=== PATIENT | male | born 1945 | race Caucasian/White ===

== ENCOUNTER → 2017-05-01 | Outpatient (CLI) | payer MEDICARE ==
[~2017-05-01] VITALS: Ht 177.8 cm; Wt 92.5 kg
[~2017-05-01] MED LIST: FINA5TAB2 PO; LOVA40TA PO; NS 1,000 ML IV ONE; PROPOFOL 200 MG/20 ML VIAL As Ordered ONE
--- NOTE | 2017-05-01 09:24 | ROOR ---
Patient Name: Sarwat Harrington Procedure Date: 05/01/2017 9:02 AM Date of : 1945 Age: 72 Room: [facility] Gender: Male Note Status: Finalized Procedure: Colonoscopy Indications: High risk colon cancer surveillance: Personal history of colonic polyps Providers: Adan Shields Jr, MD Referring MD: Olena La NP Requesting Provider: Medicines: Propofol per Anesthesia Complications: No immediate complications. Procedure: Pre-Anesthesia Assessment: - Prior to the procedure, a History and Physical was performed, and patient medications and allergies were reviewed. The patient is competent. The risks and benefits of the procedure and the sedation options and risks were discussed with the patient. All questions were answered and informed consent was obtained. Patient identification and proposed procedure were verified by the physician and the nurse in the pre-procedure area and in the procedure room. Mental Status Examination: alert and oriented. Airway Examination: normal oropharyngeal airway and neck mobility. Respiratory Examination: clear to auscultation. CV Examination: normal. ASA Grade Assessment: II - A patient with mild systemic disease. After reviewing the risks and benefits, the patient was deemed in satisfactory condition to undergo the procedure. The anesthesia plan was to use moderate sedation / analgesia (conscious sedation). Immediately prior to administration of medications, the patient was re-assessed for adequacy to receive sedatives. The heart rate, respiratory rate, oxygen saturations, blood pressure, adequacy of pulmonary ventilation, and response to care were monitored throughout the procedure. The physical status of the patient was re-assessed after the procedure. The Colonoscope was introduced through the anus and advanced to the cecum, identified by appendiceal orifice and ileocecal valve. The colonoscopy was performed without difficulty. The patient tolerated the procedure well. The quality of the bowel preparation was adequate and good. Findings: The perianal and digital rectal examinations were normal. Pertinent negatives include normal sphincter tone, no palpable rectal lesions and no anal lesion or abnormality was detected. The rectum, recto-sigmoid colon, descending colon, transverse colon, ascending colon, cecum, appendiceal orifice and ileocecal valve appeared normal. Multiple small and large-mouthed diverticula were found in the sigmoid colon. A small polyp was found in the sigmoid colon. The polyp was removed with a hot snare. Resection and retrieval were complete. Impression: - The rectum, recto-sigmoid colon, descending colon, transverse colon, ascending colon, cecum, appendiceal orifice and ileocecal valve are normal. - Diverticulosis in the sigmoid colon. - One small polyp in the sigmoid colon, removed with a hot snare. Resected and retrieved. Recommendation: - Repeat colonoscopy in 5 years for surveillance. Adan Shields MD Adan Shields Jr, MD 05/01/2017 9:24:08 AM This report has been signed electronically. Number of Addenda: 0 Note Initiated On: 05/01/2017 9:02 AM Estimated Blood Loss: Estimated blood loss: none.
[2017-05-01 09:55] VITALS: BP 129/93
== END | disposition home or self-care (01) ==
LOC: M OPP 08:03
PROVIDERS: ATTEND Surgery
DX: Z12.11 Encounter for screening for malignant neoplasm of colon (principal); K57.30 Diverticulosis of large intestine without perforation or abscess without bleeding; D12.5 Benign neoplasm of sigmoid colon; E78.00 Pure hypercholesterolemia, unspecified; M19.90 Unspecified osteoarthritis, unspecified site; N40.0 Benign prostatic hyperplasia without lower urinary tract symptoms

== ENCOUNTER → 2017-12-22 | Outpatient (REF) | payer MEDICARE ==
[2017-12-22 14:20] LABS: INFLUENZA A AMPLIFICATION POSITIVE (NEGATIVE); INFLUENZA B AMPLIFICATION NEGATIVE (NEGATIVE)
== END ==
LOC: M LAB REF 12:54
DX: R05 Cough (principal)
CPT/HCPCS: 87502

== ENCOUNTER → 2017-12-29 | Outpatient (CLI) | payer MEDICARE | LOC: M WUC 15:09 | DX: R06.02 Shortness of breath (principal) | CPT/HCPCS: 71046 ==

== ENCOUNTER → 2018-10-14 | Outpatient (REF) | payer MEDICARE ==
[2018-10-15 13:47] LABS: INFLUENZA A AMPLIFICATION NEGATIVE (NEGATIVE); INFLUENZA B AMPLIFICATION NEGATIVE (NEGATIVE)
== END ==
LOC: M LAB REF 10-15 12:12
DX: R05 Cough (principal); J06.9 Acute upper respiratory infection, unspecified
CPT/HCPCS: 87502

== ENCOUNTER → 2019-01-18 | Outpatient (REF) | payer MEDICARE ==
[~2019-01-18] MED LIST changes: -NS 1,000 ML IV ONE; -PROPOFOL 200 MG/20 ML VIAL As Ordered ONE
[2019-01-18 13:10] LABS: INFLUENZA A AMPLIFICATION NEGATIVE (NEGATIVE); INFLUENZA B AMPLIFICATION NEGATIVE (NEGATIVE)
== END ==
LOC: M LAB REF 12:18
PROVIDERS: ATTEND Nurse Practitioner Adult Health
DX: J06.9 Acute upper respiratory infection, unspecified (principal); R05 Cough

== ENCOUNTER → 2019-08-27 | Outpatient (CLI) | payer MEDICARE ==
[2019-08-27 12:42] LABS: HEMATOCRIT 47.9 % (42.0-52.0); HEMOGLOBIN 15.8 g/dl (13.5-17.5); MEAN CORPUSCULAR HEMOGLOBIN 31.9 pg (27.0-33.0); MEAN CORPUSCULAR VOLUME 96.8 fl (80.0-96.0); PLATELET COUNT, AUTOMATED 284 10^3/uL (150-450); RED BLOOD COUNT 4.95 10^6/uL (4.30-6.10); WHITE BLOOD COUNT 8.6 10^3/uL (4.0-10.0)
[2019-08-27 13:00] LABS: BLOOD UREA NITROGEN 21 MG/DL (7-18); CREATININE FOR GFR 1.16 MG/DL (0.70-1.30); GLOMERULAR FILTRATION RATE > 60.0 (>42)
== END ==
LOC: M LAB 11:43
PROVIDERS: ATTEND Surgery
DX: Z01.818 Encounter for other preprocedural examination (principal)

== ENCOUNTER → 2019-09-02 | Outpatient (CLI) | payer MEDICARE ==
[~2019-09-02] MED LIST changes: +GASTROGRAFIN SOLUTION 30ML (Q9963) As Ordered ONE; +ISOVUE-370 76% 100ML VIAL (Q9967) As Ordered ONE
--- NOTE | 2019-09-03 08:28 | REP ---
CT abdomen and pelvis with IV and oral contrast: History: Incisional hernia. Umbilical hernia. No comparison study. CT contrast dose: 100 ml of intravenous Isovue 370. CT findings: Preliminary digital health facilities surveyor radiograph shows an unremarkable bowel gas pattern. There is a dextroconvex lumbar scoliosis. The lung bases show bibasilar linear fibrosis versus atelectasis. Right more prominent than left. Right hemidiaphragm is somewhat elevated. The liver shows diffuse fatty infiltration. Spleen is homogeneous in texture normal in size. No adrenal lesion is seen. No abnormalities noted in the pancreas or in the gallbladder. There are bilateral renal cysts. A simple cyst is seen on the left measuring 2.9 cm in greatest diameter. There is a complex cystic lesion projecting laterally from the upper pole of the right kidney measuring 5.3 by 2.9 by 3.2 cm in diameter. This has a heterogeneous internal attenuation pattern and therefore, does not meet criteria of a simple cyst. Further evaluation of this is warranted. It has a mean Hounsfield unit density of 38 HU. No hydronephrosis is seen. Atherosclerotic calcification is seen in the abdominal aorta which is ectatic, but not aneurysmal. 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 A there is diverticulosis affecting the descending and sigmoid segments of the colon without CT evidence of diverticulitis. Small and large bowel loops are otherwise unremarkable in the abdomen and pelvis. The patient is status post ventral hernia repair. No abdominal wall defect is appreciated. There are dystrophic calcifications in the prostate. Urinary bladder and seminal vesicles are unremarkable. Impression: 1. 5.3 cm complex cystic lesion right kidney, rule out cystic malignancy. Consider renal sonography and/or renal MRI scanning. 2. 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 3. Left colonic diverticulosis without CT evidence of diverticulitis. 4. Status post ventral hernia repair no abdominal wall defect seen. Electronically Signed by Volodymyr Junior MD 09/03/2019 08:40 A
== END ==
LOC: M RAD 12:46
PROVIDERS: ATTEND Surgery
DX: K76.0 Fatty (change of) liver, not elsewhere classified (principal); N28.1 Cyst of kidney, acquired; I70.0 Atherosclerosis of aorta; I72.2 Aneurysm of renal artery; K57.30 Diverticulosis of large intestine without perforation or abscess without bleeding; Z98.890 Other specified postprocedural states
CPT/HCPCS: 74177; Q9963; Q9967

== ENCOUNTER → 2019-09-17 | Outpatient (CLI) | payer MEDICARE ==
[~2019-09-17] MED LIST changes: -GASTROGRAFIN SOLUTION 30ML (Q9963) As Ordered ONE; -ISOVUE-370 76% 100ML VIAL (Q9967) As Ordered ONE
--- NOTE | 2019-09-17 08:51 | REP ---
Clinical: Renal neoplasm. Technique: Real time acuna scale ultrasound examination using curved array transducer. Findings: The right kidney measures 11.0 x 5.0 x 5.0 cm and demonstrates cortical thinning without hydronephrosis. 4.3 x 3.2 x 3.0 cm exophytic mass identified along the mid/lower lateral portion of the kidney. The left kidney measures 11.4 x 7.4 x 6.2 cm and demonstrates cortical thinning without hydronephrosis, nephrolithiasis, or mass lesion. Simple benign lower pole cyst measures 2.1 x 2.3 x 2.4 cm. Bladder is collapsed. Impression: Solid right renal mass consistent with renal cell carcinoma unless proven otherwise. Electronically Signed by Foreign Dietrich MD 09/17/2019 08:43 A
== END ==
LOC: M RAD 06:27
PROVIDERS: ATTEND Surgery
DX: D30.01 Benign neoplasm of right kidney (principal)

== ENCOUNTER → 2019-09-24 | Outpatient (REF) | payer MEDICARE ==
[~2019-09-24] MED LIST changes: +CHOL100029 PO; +DOCU100C16 PO; +HYDR10TAB PO; +LABE10TAB PO; +MULTCAP PO; +OXYC1TAB23 PO; +PERCOCET PO; +PROAAER10 INH; +VITA100066 PO; +VITMTA PO
[2019-09-24 14:09] LABS: AMORPHOUS SEDIMENT MODERATE (NEGATIVE); APPEARANCE, URINE TURBID (CLEAR); BACTERIA, URINE AUTO NEGATIVE (NEGATIVE); BILIRUBIN, URINE AUTO NEGATIVE (NEGATIVE); BLOOD, URINE BLOOD NEGATIVE (NEGATIVE); COLOR, URINE AMBER (YELLOW); GLUCOSE, URINE (UA) AUTO NEGATIVE (NEGATIVE); KETONE, URINE AUTO 1+ mg/dL (NEGATIVE); LEUKOCYTE ESTERASE, URINE AUTO TRACE (NEGATIVE); MUCUS, URINE LARGE (NEGATIVE); NITRITE, URINE AUTO NEGATIVE (NEGATIVE); PROTEIN, URINE AUTO 1+ mg/dL (NEGATIVE); RBC, URINE AUTO 0 /HPF (0-3); SPECIFIC GRAVITY URINE AUTO 1.024 (1.002-1.035); SQUAMOUS EPITHELIAL CELL UR AU 0 /HPF (0-6); WBC, URINE AUTO 1 /HPF (0-3)
== END ==
LOC: M SMT 13:04
PROVIDERS: ATTEND Nurse Practitioner Women's Health
DX: N28.1 Cyst of kidney, acquired (principal)

== ENCOUNTER → 2019-09-24 | Outpatient (CLI) | payer MEDICARE ==
[~2019-09-24] MED LIST changes: -CHOL100029 PO; -DOCU100C16 PO; -HYDR10TAB PO; -LABE10TAB PO; -MULTCAP PO; -OXYC1TAB23 PO; -PERCOCET PO; -PROAAER10 INH; +PROHANCE 279.3MG/ML 15ML VIAL (A9576) As Ordered ONE; +PROHANCE 279.3MG/ML 5ML VIAL (A9576) As Ordered ONE; -VITA100066 PO; -VITMTA PO
--- NOTE | 2019-09-27 08:32 | REP ---
MRI abdomen and kidneys without and with IV contrast: History: Complex renal cyst. Comparison sonography September 17, 2019. Comparison CT study September 02, 2019. Technique: Axial and coronal T1 and T2-weighted scans were obtained with sequences including spin echo, fast spin echo, gradient echo, in and [id number], and dynamically acquired sequential post contrast images. Contrast enhancement dose is 18 ml of intravenous ProHance. MRI findings: There are parapelvic and cortical cysts affecting the left kidney. The largest of these measures 3.1 cm. There are two small parapelvic cysts in the right kidney, the largest measuring 1.0 cm. However, in the right kidney, there is also a mid pole lobulated mass which extends laterally into the perirenal fat bulging Gerota's fascia and exerting some mass effect on the adjacent liver. This lesion demonstrates low T2 and isointense T1 signal intensity consistent with a solid neoplastic lesion. It measures 4.8 cm in medial to lateral span by 2.7 cm anterior to posterior by 3.1 cm in greatest cranial to caudal span. Postcontrast images demonstrate heterogeneous enhancement, particularly in the lateral lobulated portion of the lesion. There is no evidence of intralesional fat. No other abnormal enhancement is seen. There is no evidence of regional lymphadenopathy. No abnormality is seen in the renal vein on either side. There are degenerative changes in the lumbar spine along with a dextroconvex lumbar scoliotic curve. Left colonic diverticulosis is seen. No other significant abnormality is appreciated. Impression: Suspicious mass in the right mid kidney most likely representing renal malignancy. No visible regional adenopathy or renal vein abnormality. Electronically Signed by Volodymyr Junior MD 09/27/2019 09:14 A
== END ==
LOC: M RAD 16:57
PROVIDERS: ATTEND Nurse Practitioner Women's Health
DX: N28.1 Cyst of kidney, acquired (principal)
CPT/HCPCS: 74183; 81001; 87086; A9576; G0463

== ENCOUNTER → 2019-10-13 | Outpatient (CLI) | payer MEDICARE ==
[~2019-10-13] MED LIST changes: +CHOL100029 PO; +MULTCAP PO; +PROAAER10 INH; -PROHANCE 279.3MG/ML 15ML VIAL (A9576) As Ordered ONE; -PROHANCE 279.3MG/ML 5ML VIAL (A9576) As Ordered ONE
--- NOTE | 2019-10-13 11:01 | REP ---
Clinical: Preoperative assessment. Renal mass . Comparison: 12/29/2017 . Technique: PA and lateral. Findings: The mediastinum and cardiac silhouette are normal. The lung knight are clear and without acute consolidation, effusion, or pneumothorax. The skeletal structures are intact and normal. Impression: 1. No acute cardiopulmonary process. Electronically Signed by Foreign Dietrich MD 10/13/2019 10:52 A
[2019-10-13 11:35] LABS: HEMATOCRIT 49.9 % (42.0-52.0); HEMOGLOBIN 16.4 g/dl (13.5-17.5); MEAN CORPUSCULAR HGB CONC 32.9 g/dl (32.0-36.5); MEAN CORPUSCULAR VOLUME 97.5 fl (80.0-96.0); PLATELET COUNT, AUTOMATED 211 10^3/uL (150-450); RED BLOOD COUNT 5.12 10^6/uL (4.30-6.10); WHITE BLOOD COUNT 7.6 10^3/uL (4.0-10.0)
[2019-10-13 12:08] LABS: INR 1.03; PROTHROMBIN TIME 13.2 SECONDS (11.8-14.0)
[2019-10-13 12:25] LABS: BLOOD UREA NITROGEN 20 MG/DL (7-18); CALCIUM LEVEL 9.1 MG/DL (8.8-10.2); CARBON DIOXIDE LEVEL 26 MEQ/L (21-32); CHLORIDE LEVEL 108 MEQ/L (98-107); GLOMERULAR FILTRATION RATE > 60.0 (>42); GLUCOSE, FASTING 87 MG/DL (70-100); POTASSIUM SERUM 4.4 MEQ/L (3.5-5.1); SODIUM LEVEL 140 MEQ/L (136-145)
[2019-10-13 12:28] LABS: APPEARANCE, URINE CLEAR (CLEAR); BACTERIA, URINE AUTO NEGATIVE (NEGATIVE); BILIRUBIN, URINE AUTO NEGATIVE (NEGATIVE); BLOOD, URINE BLOOD NEGATIVE (NEGATIVE); COLOR, URINE YELLOW (YELLOW); GLUCOSE, URINE (UA) AUTO NEGATIVE (NEGATIVE); KETONE, URINE AUTO NEGATIVE (NEGATIVE); LEUKOCYTE ESTERASE, URINE AUTO NEGATIVE (NEGATIVE); MUCUS, URINE SMALL (NEGATIVE); NITRITE, URINE AUTO NEGATIVE (NEGATIVE); PROTEIN, URINE AUTO NEGATIVE (NEGATIVE); RBC, URINE AUTO 0 /HPF (0-3); SPECIFIC GRAVITY URINE AUTO 1.014 (1.002-1.035); SQUAMOUS EPITHELIAL CELL UR AU 0 /HPF (0-6); UROBILINOGEN, URINE AUTO 0.2 mg/dL (0.0-2.0); WBC, URINE AUTO 0 /HPF (0-3)
== END ==
LOC: M LAB 09:36
PROVIDERS: ATTEND Nurse Practitioner Women's Health
DX: Z01.818 Encounter for other preprocedural examination (principal); N28.89 Other specified disorders of kidney and ureter

== ENCOUNTER 2019-11-02 06:01 | Inpatient (IN) | payer MEDICARE ==
[2019-11-02] VITALS (7 sets, daily range): BP systolic 130–144; BP diastolic 72–94
[~2019-11-02] VITALS: Ht 180.3 cm; Wt 87.6 kg
[~2019-11-02 06:01] MED LIST changes: +LIDOCAINE 1% MDV 20ML VIAL SQ PRN; +LR 1,000 ML IV SCH; +ceFAZolin SOD 2 GM in IV 1 EA IV ONE
[2019-11-02] MEDS ORDERED: LIDOCAINE 1% SDV INJ 30 ML VIAL As Ordered ONE (07:19)
[2019-11-02] MEDS ORDERED: BUPIVACAINE HCL 0.25% 30 ML VIAL As Ordered ONE (07:19)
[2019-11-02] MEDS ORDERED: ACETAMINOPHEN TAB 650MG DOSE (2X325MG) PO PRN (07:30)
[2019-11-02] MEDS ORDERED: ALBUTEROL 90 MCG/ACT 8GM HFA INHALER INH PRN (07:30)
[2019-11-02] MEDS ORDERED: LIDOCAINE 2% INJ 100 MG/5 ML SDV (FOR ANES.) As Ordered ONE (08:24)
[2019-11-02] MEDS ORDERED: MIDAZOLAM INJ 2 MG/2 ML VIAL (J2250) As Ordered ONE (08:24)
[2019-11-02] MEDS ORDERED: dexameTHASONE 4 MG/ML 1ML VIAL (J1100) As Ordered ONE (08:24)
[2019-11-02] MEDS ORDERED: ROCURONIUM BROMIDE 50 MG/5 ML VIAL As Ordered ONE ×2 (08:24→08:25)
[2019-11-02] MEDS ORDERED: METOCLOPRAMIDE INJ 10MG/2ML VIAL (J2765) As Ordered ONE (08:24)
[2019-11-02] MEDS ORDERED: fentaNYL 250 MCG/5 ML INJECTION (J3010) As Ordered ONE (08:24)
[2019-11-02] MEDS ORDERED: PROPOFOL 200 MG/20 ML VIAL As Ordered ONE (08:24)
[2019-11-02] MEDS ORDERED: ONDANSETRON 4MG/2ML VIAL (J2405) As Ordered ONE (08:25)
[2019-11-02] MEDS ORDERED: SUGAMMADEX SODIUM 500 MG/5 ML VIAL (BRIDION) As Ordered ONE (08:25)
[2019-11-02] MEDS ORDERED: HYDROmorphone HCL 2 MG/ML 1ML VIAL (J1170) As Ordered ONE (08:28)
[2019-11-02] MEDS ORDERED: ePHEDrine SULFATE 25 MG/5 ML(5MG/ML) SYRINGE As Ordered ONE (08:34)
[2019-11-02] MEDS ORDERED: PHENYLephrine HCL 500 MCG/5 ML (100MCG/ML) SYRINGE (J2370) As Ordered ONE (08:34)
[2019-11-02] MEDS: DOCUSATE SODIUM 100 MG CAP PO SCH ×2 (09:00→20:11)
[2019-11-02] MEDS ORDERED: ACETAMINOPHEN 1000MG 100ML IV BTL (OFIRMEV) (J0131 PER 10MG) As Ordered ONE (10:09)
[2019-11-02] MEDS ORDERED: MORPHINE 2 MG/ML 1ML VIAL (J2270) IV PRN (12:00)
[2019-11-02] MEDS ORDERED: fentaNYL 100 MCG/2 ML INJECTION (J3010) IV PRN (12:00)
[2019-11-02] MEDS ORDERED: LR 1,000 ML IV SCH (12:00)
[2019-11-02] MEDS ORDERED: METOCLOPRAMIDE INJ 10MG/2ML VIAL (J2765) IV PRN (12:00)
[2019-11-02] MEDS ORDERED: ONDANSETRON 4MG/2ML VIAL (J2405) IV PRN (12:00)
[2019-11-02] MEDS: PERCOCET 5MG/325MG TAB PO PRN ×4 (12:09→22:46)
[2019-11-02 12:29] LABS: HEMATOCRIT 43.6 % (42.0-52.0); HEMOGLOBIN 14.5 g/dl (13.5-17.5); MEAN CORPUSCULAR HEMOGLOBIN 32.5 pg (27.0-33.0); MEAN CORPUSCULAR HGB CONC 33.3 g/dl (32.0-36.5); MEAN CORPUSCULAR VOLUME 97.8 fl (80.0-96.0); PLATELET COUNT, AUTOMATED 271 10^3/uL (150-450); RED BLOOD COUNT 4.46 10^6/uL (4.30-6.10); WHITE BLOOD COUNT 17.7 10^3/uL (4.0-10.0)
--- NOTE | 2019-11-02 12:29 | ROOPDOC ---
[facility] Report Of Operation Report of Operation DATE OF PROCEDURE: 11/02/19 PREPROCEDURE DIAGNOSES: Right Renal Neoplasm. POSTPROCEDURE DIAGNOSES: Right Renal Neoplasm. PROCEDURE: Right Robotic-assisted Laparoscopic Radical Nephrectomy (adrenal- sparing). SURGEON: Domenica Belle MD FLOORWORKER DISTRIBUTOR: Luann Worrell NP ANESTHESIA: General OPERATIVE INDICATIONS: This is a 74 year old male found to have a solid enhancing 5cm mass on his right kidney, concerning for malignancy. Due to the central extension of the mass it was recommended that he undergo the above procedure for treatment. DESCRIPTION OF PROCEDURE: The patient was brought to the operating room and general anesthesia was induced. Prophylactic antibiotics were infused. A Rouse catheter was placed under sterile conditions. The patient was then repositioned in the left lateral decubitus position. All pressure points were appropriately padded and an axillary roll was placed. He was secured to the table with tape. The patient was then prepped and draped in the usual sterile fashion. The initial incision was for an 8mm port in line with the 11th rib along the lateral rectus margin. A Veress needle was then utilized to achieve the pneumoperitoneum. An 8mm port was then placed in through this incision and through which the camera was inserted. There were no injuries from Veress needle placement or initial trocar placement. The remaining ports were then placed under vision. The right hand robotic port was placed along the costal margin. Another 5 mm port was placed just inferior to the xyphoid for access for a liver retractor. A 12mm robotic port was placed just inferior to the camera port, also on the lateral rectus margin. The left hand robotic port was placed between the anterior-superior iliac spine and the umbilicus. A 15mm assistant housekeeping manager port was placed inferior and medial to the camera port. The robot was then docked. We began by lifting up the liver with a laparoscopic locking Allis clamp. Next the right colon was dissected off of Gerota's fascia. We then Kocherized the duodenum. At this point the inferior vena cava (IVC) was identified. A plane was made onto the lateral aspect of the IVC. Of note, one renal vein was identified. One artery was identified just inferior and posterior to the vein. The artery was carefully dissected and then ligated with Weck clips. It was then transected, leaving 2 Weck clips on the stay side and 1 on the kidney side. Next, a robotic 45mm stapler was utilized to ligate and transect the right renal vein. Once the hilum was taken, a plane onto the upper pole of the kidney was created and the right adrenal gland was mobilized off of the kidney. The kidney was then carefully dissected on all sides until it was only connected by the right ureter. The ureter was then ligated with a Weck clip and transected proximal to the clip. The right kidney was then placed in a large Endocatch bag for future retrieval. We then checked for hemostasis and it appeared excellent. Jaden hemostatic agent was then placed in the nephrectomy bed. Once satisfied with hemostasis, the robot was undocked. We then used a YvesFernando fascial closure device to place a #0 Vicryl free ties through the fascia of the 15 mm camera port site. We then extended one of the left robotic port site incisions and dissected down to the fascia. The fascia was then extended using electrocautery. The muscle was bluntly spread. The specimen was then extracted through this incision. It was handed off the table to send for pathology. We then closed the extraction incision, starting first by reapproximating the muscle with figure of eight #0 Vicryl suture. The fascia was then closed using a running #0 Vicryl suture. At this point, the abdomen was reinsufflated and we looked back in with the camera and there was no bleeding underneath the extraction site. No abdominal contents were caught within the closure either. We then removed all the ports under direct vision and there was no bleeding from any of the port sites. At this point, the previously placed #0 Vicryl free ties were tied down and all the incisions were thoroughly irrigated. The subcutaneous tissue of the extraction incision was then reapproximated using interrupted #3-0 Vicryl suture. We then closed the skin of each site using a running #4-0 subc uticular Monocryl stitch. Local anesthetic was then applied to each incision and Dermabond was then applied and this marked the conclusion of the procedure. The patient was then taken out of the left lateral decubitus position, awakened from anesthesia and transported to the recovery room in stable condition. ESTIMATED BLOOD LOSS: 50 mL INTRAOPERATIVE COMPLICATIONS: None SPECIMENS: Right kidney. PLAN: The patient will be admitted to the hospital postoperatively and he will be discharged home once his renal function is stable and he is tolerating a regular diet. DOMENICA BELLE MD Nov 02, 2019 12:29
[2019-11-02 12:54] LABS: CALCIUM LEVEL 7.9 MG/DL (8.8-10.2); CREATININE FOR GFR 1.65 MG/DL (0.70-1.30); GLOMERULAR FILTRATION RATE 43.6 (>42); POTASSIUM SERUM 4.2 MEQ/L (3.5-5.1)
[2019-11-02] MEDS: NS 1,000 ML IV SCH ×3 (13:51→22:37)
[2019-11-02] MEDS: ceFAZolin SOD 1 GM in D5W MINI-BAG PLUS 50 ML IV SCH (15:34)
[2019-11-03] MEDS: ceFAZolin SOD 1 GM in D5W MINI-BAG PLUS 50 ML IV SCH (00:05)
[2019-11-03 02:00] VITALS: BP 126/84
[2019-11-03 06:00] VITALS: BP 124/80
[2019-11-03] MEDS: NS 1,000 ML IV SCH (06:28)
[2019-11-03 07:02] LABS: HEMOGLOBIN 12.6 g/dl (13.5-17.5); MEAN CORPUSCULAR HEMOGLOBIN 31.7 pg (27.0-33.0); MEAN CORPUSCULAR HGB CONC 32.3 g/dl (32.0-36.5); MEAN CORPUSCULAR VOLUME 98.2 fl (80.0-96.0); PLATELET COUNT, AUTOMATED 217 10^3/uL (150-450); RED BLOOD COUNT 3.97 10^6/uL (4.30-6.10); WHITE BLOOD COUNT 11.8 10^3/uL (4.0-10.0)
[2019-11-03 07:21] LABS: CALCIUM LEVEL 7.3 MG/DL (8.8-10.2); CREATININE FOR GFR 1.77 MG/DL (0.70-1.30); GLOMERULAR FILTRATION RATE 40.2 (>42); POTASSIUM SERUM 3.9 MEQ/L (3.5-5.1)
[2019-11-03] MEDS: DOCUSATE SODIUM 100 MG CAP PO SCH ×2 (08:45→21:49)
[2019-11-03] MEDS: FINASTERIDE 5 MG TAB PO SCH (08:46)
[2019-11-03] MEDS: PERCOCET 5MG/325MG TAB PO PRN ×3 (08:53→18:23)
--- NOTE | 2019-11-03 09:46 | IPNPDOC ---
Subjective Review oF Systems Chief Complaint The patient is a 74-year-old male admitted with a reason for visit of Renal Mass. Events since Last Encounter No acute events o/n. Good pain control. No n/v. Has not ambulated yet. No f/c/ns. Objective Physical Examination General Exam: Alert, Cooperative ABDOMEN EXAM: Soft, Tenderness (mild), Other (incisions clean/dry/intact) Skin Exam: Nl turgor and temperature Neuro Exam: Normal Speech Psych Exam: Mental status NL, Mood NL Other physical findings catheter draining clear urine Vital Signs/I&O Vital Signs Date Time Temp Pulse Resp B/P (MAP) Pulse Ox O2 Delivery O2 Flow Rate FiO2 11/03/19 08:53 16 Room Air 11/03/19 06:00 97.9 64 124/80 (95) 94 11/03/19 02:00 1.0 I&O- Last 24 Hours up to 6 AM 11/03/19 06:00 Intake Total 5675 ml Output Total 1950 ml Balance 3725 ml Laboratory Data Labs 24H Laboratory Tests 2 11/02/19 12:14: Nucleated Red Blood Cells % (auto) 0.0, Anion Gap 9, Glomerular Filtration Rate 43.6, Calcium Level 7.9L 11/03/19 06:36: Nucleated Red Blood Cells % (auto) 0.0, Anion Gap 6L, Glomerular Filtration Rate 40.2L, Calcium Level 7.3L CBC/BMP Laboratory Tests 11/02/19 12:14 11/03/19 06:36 Assessment/Plan Date Seen The patient was seen on 11/03/19. Patient Summary This is a 74 y/o M POD1 s/p R robotic radical nephrectomy. Hb this am was 12.6. Cr is 1.8. UOP has been good. Plan/VTE VTE Prophylaxis Ordered?: Yes VTE Exclusion Mechanical Proph: N/A:VTE Prophy Ordered Plan/Urinary Catheter Urinary Catheter: D/C Rouse Plan - d/c catheter - d/c IVF - percocet prn pain - ambulate - SCDs when in bed - strict I/Os - advance diet as tolerated - likely discharge home tomorrow DOMENICA BELLE MD Nov 03, 2019 09:46
[2019-11-03 10:00] VITALS: BP 133/87
[2019-11-03 14:00] VITALS: BP 146/91
[2019-11-03 18:00] VITALS: BP 168/98
[2019-11-03] MEDS: MORPHINE 2 MG/ML 1ML VIAL (J2270) IV PRN (21:53)
[2019-11-03 22:00] VITALS: BP 180/100
[2019-11-03] MEDS ORDERED: **hydrALAZINE** 10 MG TAB PO ONE (23:15)
[2019-11-04] VITALS (12 sets, daily range): BP systolic 109–192; BP diastolic 63–98; O2SAT 91–94
[2019-11-04] MEDS: PERCOCET 5MG/325MG TAB PO PRN ×5 (00:02→20:29)
[2019-11-04] MEDS: MORPHINE 2 MG/ML 1ML VIAL (J2270) IV PRN ×3 (04:01→21:56)
[2019-11-04] MEDS ORDERED: hydrALAZINE INJ 20 MG/ML VIAL IV PRN (04:30)
[2019-11-04] MEDS: ONDANSETRON 4MG/2ML VIAL (J2405) IV PRN (05:34)
[2019-11-04 06:04] LABS: CALCIUM LEVEL 8.1 MG/DL (8.8-10.2); CREATININE FOR GFR 1.55 MG/DL (0.70-1.30); GLOMERULAR FILTRATION RATE 46.9 (>42); HEMATOCRIT 45.1 % (42.0-52.0); MEAN CORPUSCULAR HEMOGLOBIN 31.8 pg (27.0-33.0); MEAN CORPUSCULAR HGB CONC 33.3 g/dl (32.0-36.5); MEAN CORPUSCULAR VOLUME 95.6 fl (80.0-96.0); PLATELET COUNT, AUTOMATED 215 10^3/uL (150-450); POTASSIUM SERUM 3.8 MEQ/L (3.5-5.1); RED BLOOD COUNT 4.72 10^6/uL (4.30-6.10); WHITE BLOOD COUNT 13.8 10^3/uL (4.0-10.0)
--- NOTE | 2019-11-04 07:15 | ECGEPIP ---
[facility] Test Date: 2019-11-04 Pat Name: BOZENA WORKMAN Department: Room: [place] [address] Gender: Male Bacteriologist Soil: TATY FAUST : 1945 Requested By: DOMENICA Weinstein Order Number: [id number] Reading MD: Ajit Cordero Measurements Intervals [place] Rate: 89 P: 3 AR: 200 QRS: 9 QRSD: 94 T: 59 QT: 393 QTc: 479 Interpretive Statements SINUS RHYTHM WITH OCCASIONAL VENTRICULAR PREMATURE COMPLEXES WITH FREQUENT SUPRAVENTRICULAR PREMATURE COMPLEXES Prolonged QTc interval Nonspecific ST-T wave abnormalities Comparison tracing not on file Electronically Signed on 11-04-2019 7:14:48 EST by Ajit Cordero
[2019-11-04 07:19] LABS: MAGNESIUM LEVEL 2.6 MG/DL (1.8-2.4)
--- NOTE | 2019-11-04 08:07 | IPNPDOC ---
Subjective Review oF Systems Chief Complaint The patient is a 74-year-old male admitted with a reason for visit of Renal Mass. Events since Last Encounter The patient had very high BPs o/n w/ BP in 200s/100s. He was transferred to the PCU and the hospitalist service was consulted. He denied any problems at the time other than moderate amount of abd pain. He is tolerating a diet. Denies n/v. No chest pain or SOB. No f/c/ns. Objective Physical Examination General Exam: Alert, Cooperative ABDOMEN EXAM: Soft, Tenderness (mild), Other (incisions clean/dry/intact) Skin Exam: Nl turgor and temperature Neuro Exam: Normal Speech Psych Exam: Mental status NL, Mood NL Vital Signs/I&O Vital Signs Date Time Temp Pulse Resp B/P (MAP) Pulse Ox O2 Delivery O2 Flow Rate FiO2 11/04/19 06:04 18 11/04/19 05:38 164/92 (116) 11/04/19 04:11 Nasal Cannula 1.0 11/04/19 04:00 98.7 89 92 I&O- Last 24 Hours up to 6 AM 11/04/19 06:00 Intake Total 3035 ml Output Total 5375 ml Balance -2340 ml Laboratory Data Labs 24H Laboratory Tests 2 11/04/19 05:18: Nucleated Red Blood Cells % (auto) 0.0, Anion Gap 8, Glomerular Filtration Rate 46.9, Calcium Level 8.1L, Magnesium Level 2.6H CBC/BMP Laboratory Tests 11/04/19 05:18 Assessment/Plan Date Seen The patient was seen on 11/04/19. Patient Summary This is a 74 y/o M POD2 s/p right robotic radical nephrectomy. His UOP is very good. Hb is stable. Cr is trending down, 1.55 today. BP has improved, due either to hydralazine or better pain control. Plan/VTE VTE Prophylaxis Ordered?: Yes VTE Exclusion Mechanical Proph: N/A:VTE Prophy Ordered Plan - appreciate hospitalist service consult for HTN - cont home meds - ambulate - SCDs in bed - incentive spirometry - strict I/Os - regular diet - discharge likely in 1-2 days pending better BP control DOMENICA BELLE MD Nov 04, 2019 08:07
[2019-11-04] MEDS: DOCUSATE SODIUM 100 MG CAP PO SCH ×2 (09:26→20:29)
[2019-11-04] MEDS: FINASTERIDE 5 MG TAB PO SCH (09:27)
--- NOTE | 2019-11-04 12:28 | CR ---
DATE OF CONSULTATION: 11/04/2019 CONSULTATION REPORT FOR: Dr. David Colon PRIMARY CARE PROVIDER: Dr. Olena Treviño Medical evaluation of Sarwat Harrington who underwent a nephrectomy yesterday. His blood pressures have been elevated postoperatively. He has a past history of hypertension in the past that was perioperative after a knee procedure. His past medical history is essentially benign except for some hyperlipidemia and benign prostatic hypertrophy (BPH). OUTPATIENT MEDICATIONS: - lovastatin 40 mg daily - finasteride 5 mg daily - multivitamin ALLERGIES: Unknown. PAST SURGICAL HISTORY: Shoulder surgery, right hand surgery times three, knee surgery repeatedly, umbilical hernia repair, colonoscopy. SOCIAL HISTORY: Nonsmoker. No alcohol. He is . REVIEW OF SYSTEMS: No chest pain, shortness of breath, palpitations, dyspnea on exertion. PHYSICAL EXAMINATION: Blood pressure 126/63, pulse of 82, respiratory rate of 18, 93% oxygen saturation on one liter. GENERAL APPEARANCE: He is alert, conversant, in no distress. HEENT: Unremarkable. No carotid bruits. LUNGS: Clear. HEART: Regular rate and rhythm without murmur. ABDOMEN: Soft. EXTREMITIES: No clubbing, cyanosis, or edema. Normal strength in the arms and legs. LABORATORY DATA: White count 13.8, hemoglobin 15, platelets 215. Sodium 138, potassium 3.8, BUN 15, creatinine 1.5. Blood pressure is currently at 126/63 and was as high as 180/100 last evening. IMPRESSION: 1. Postoperative hypertension, probably related to nephrectomy and shifts in renin-angiotensin, etcetera. We will start labetalol. Goal blood pressure 140-180 systolic. Heart rate looks like it will tolerate a beta ashley. 2. Hyperlipidemia. Restart statin. We do not have lovastatin on formulary. He could wait until he goes home to restart this. 3. Benign prostatic hypertrophy (BPH). Restart finasteride 5 mg daily. Hospitalist group is available for medical care in this patient during this hospitalization if needed.
[2019-11-04] MEDS: LABETALOL 100 MG TAB PO SCH ×2 (13:46→20:29)
[2019-11-04] MEDS: SIMVASTATIN 20 MG TAB PO SCH (13:46)
[2019-11-05] VITALS (23 sets, daily range): BP systolic 118–172; BP diastolic 74–100; O2SAT 83–93
[2019-11-05] MEDS: PERCOCET 5MG/325MG TAB PO PRN ×5 (04:35→21:27)
[2019-11-05 05:26] LABS: HEMATOCRIT 39.7 % (42.0-52.0); HEMOGLOBIN 13.2 g/dl (13.5-17.5); MEAN CORPUSCULAR HEMOGLOBIN 32.8 pg (27.0-33.0); MEAN CORPUSCULAR HGB CONC 33.2 g/dl (32.0-36.5); MEAN CORPUSCULAR VOLUME 98.5 fl (80.0-96.0); PLATELET COUNT, AUTOMATED 188 10^3/uL (150-450); RED BLOOD COUNT 4.03 10^6/uL (4.30-6.10); WHITE BLOOD COUNT 11.3 10^3/uL (4.0-10.0)
[2019-11-05 05:52] LABS: CREATININE FOR GFR 1.93 MG/DL (0.70-1.30); GLOMERULAR FILTRATION RATE 36.4 (>42); POTASSIUM SERUM 4.3 MEQ/L (3.5-5.1)
[2019-11-05] MEDS: DOCUSATE SODIUM 100 MG CAP PO SCH ×2 (08:45→21:23)
[2019-11-05] MEDS: SIMVASTATIN 20 MG TAB PO SCH (08:45)
[2019-11-05] MEDS: FINASTERIDE 5 MG TAB PO SCH (08:46)
[2019-11-05] MEDS: ONDANSETRON 4MG/2ML VIAL (J2405) IV PRN (10:42)
--- NOTE | 2019-11-05 10:57 | IPN ---
DATE: 11/05/2019 Sarwat's blood pressure is better, still intermittently elevated. No chest pain. He does have some abdominal pain. No shortness of breath. He does have some weakness. PHYSICAL EXAMINATION: Blood pressure 145/74, pulse of 57. General appearance: Alert and conversant in no distress. Lungs clear. Heart regular rhythm. Abdomen soft, mildly tender. No peripheral edema. Labs: White count 11.3, hemoglobin 13.2, platelets 188. Sodium 137, potassium 4.3, creatinine is up to 1.93. IMPRESSION: 1. Hypertension. Blood pressure is under better control. Continue current regimen. 2. Chronic kidney disease with mild acute kidney injury. I think we should watch him for another day. I think his creatinine is equilibrating after having the nephrectomy, however he could have has some renal artery vasospasm when he had his blood pressure spike as well and we need to keep an eye on this to make sure he is not developing any acute tubular necrosis. 3. Benign prostatic hypertrophy (BPH). Continue his finasteride. I will see him while rounding for the hospitalists tomorrow.
[2019-11-05] MEDS: LABETALOL 100 MG TAB PO SCH ×3 (11:19→21:23)
[2019-11-05] MEDS ORDERED: PILL CUTTER 1 EACH XX PRN (11:45)
--- NOTE | 2019-11-05 12:22 | IPNPDOC ---
Subjective Review oF Systems Chief Complaint The patient is a 74-year-old male admitted with a reason for visit of Renal Mass. Events since Last Encounter No acute events o/n. Patient still noting moderate pain w/ movement. He also noted feeling a little weak when trying to ambulate and therefore did not ambulate much yesterday. No n/v. Tolerating diet. Passing flatus. No f/c/ns. Objective Physical Examination General Exam: Alert, Cooperative ABDOMEN EXAM: Soft, Tenderness (mild), Other (incisions clean/dry/intact) Skin Exam: Nl turgor and temperature Neuro Exam: Normal Speech Psych Exam: Mental status NL, Mood NL Vital Signs/I&O Vital Signs Date Time Temp Pulse Resp B/P (MAP) Pulse Ox O2 Delivery O2 Flow Rate FiO2 11/05/19 11:19 55 130/80 11/05/19 09:15 96.9 18 93 Nasal Cannula 2.0 I&O- Last 24 Hours up to 6 AM 11/05/19 06:00 Intake Total 1200 ml Output Total 500 ml Balance 700 ml Laboratory Data Labs 24H Laboratory Tests 2 11/05/19 04:54: Nucleated Red Blood Cells % (auto) 0.0, Anion Gap 10, Glomerular Filtration Rate 36.4L, Calcium Level 8.0L CBC/BMP Laboratory Tests 11/05/19 04:54 Assessment/Plan Date Seen The patient was seen on 11/05/19. Patient Summary This is a 74 y/o M POD3 s/p right robotic radical nephrectomy. His UOP is very good, but Cr went up to 1.9 today form 1.6 yesterday. His BP is under better control on labetalol. He is noting weakness, causing difficulty ambulating. Plan/VTE VTE Prophylaxis Ordered?: Yes VTE Exclusion Mechanical Proph: N/A:VTE Prophy Ordered Plan - appreciate hospitalist team following for BP control - cont home meds - percocet prn pain - PT eval - ambulate - SCDs when in bed - strict I/Os - anticipate discharge home tomorrow DOMENICA BELLE MD Nov 05, 2019 12:22
[2019-11-05] MEDS ORDERED: PERCOCET PO (17:05)
[2019-11-05] MEDS ORDERED: DOCU100C16 PO (17:05)
[2019-11-06] VITALS (24 sets, daily range): BP systolic 120–144; BP diastolic 78–100; O2SAT 87–95
[2019-11-06] MEDS: ONDANSETRON 4MG/2ML VIAL (J2405) IV PRN (00:58)
[2019-11-06 05:31] LABS: HEMATOCRIT 39.7 % (42.0-52.0); HEMOGLOBIN 12.9 g/dl (13.5-17.5); MEAN CORPUSCULAR HEMOGLOBIN 32.1 pg (27.0-33.0); MEAN CORPUSCULAR HGB CONC 32.5 g/dl (32.0-36.5); MEAN CORPUSCULAR VOLUME 98.8 fl (80.0-96.0); PLATELET COUNT, AUTOMATED 208 10^3/uL (150-450); RED BLOOD COUNT 4.02 10^6/uL (4.30-6.10); WHITE BLOOD COUNT 9.4 10^3/uL (4.0-10.0)
[2019-11-06 05:48] LABS: CALCIUM LEVEL 8.3 MG/DL (8.8-10.2); CREATININE FOR GFR 1.8 MG/DL (0.70-1.30); GLOMERULAR FILTRATION RATE 39.5 (>42); POTASSIUM SERUM 4.1 MEQ/L (3.5-5.1)
[2019-11-06] MEDS: LABETALOL 100 MG TAB PO SCH ×3 (06:09→21:01)
[2019-11-06] MEDS: PERCOCET 5MG/325MG TAB PO PRN ×4 (08:20→22:37)
[2019-11-06] MEDS: DOCUSATE SODIUM 100 MG CAP PO SCH ×2 (09:20→21:00)
[2019-11-06] MEDS: SIMVASTATIN 20 MG TAB PO SCH (09:20)
[2019-11-06] MEDS: FINASTERIDE 5 MG TAB PO SCH (09:21)
--- NOTE | 2019-11-06 10:17 | IPNPDOC ---
Subjective Review oF Systems Chief Complaint The patient is a 74-year-old male admitted with a reason for visit of Renal Mass. Events since Last Encounter pt feels well but still has some mild pain. His biggest complaint is weakness and constipation. General: Denies: Chills Constitutional: Denies: Fever, Chills Cardiovascular: Denies Chest Pain Gastrointestinal: Reports: Constipation; Denies: Nausea, Vomiting, Abdominal Pain, Diarrhea Genitourinary: Denies: Dysuria, Frequency Psych: Reports: Mood Normal; Denies: Anxiety Objective Physical Examination General Exam: Alert, Cooperative, No Acute Distress; No: Mild Distress ABDOMEN EXAM: BS Hypoactive, Soft, Other (incisions clean/dry/intact); No: Tenderness (mild) Skin Exam: Nl turgor and temperature; No: Rash Neuro Exam: Normal Speech Psych Exam: Mental status NL, Mood NL; No: Anxiety Vital Signs/I&O Vital Signs Date Time Temp Pulse Resp B/P (MAP) Pulse Ox O2 Delivery O2 Flow Rate FiO2 11/06/19 08:20 97.9 60 16 120/86 94 Room Air 2.0 I&O- Last 24 Hours up to 6 AM 11/06/19 06:00 Intake Total 1740 ml Output Total 1925 ml Balance -185 ml Laboratory Data Labs 24H Laboratory Tests 2 11/06/19 04:30: Nucleated Red Blood Cells % (auto) 0.0, Anion Gap 6L, Glomerular Filtration Rate 39.5L, Calcium Level 8.3L CBC/BMP Admission diagnosis: . Discharge diagnosis: Condition at Discharge: Discharge Instructions: [Home/other] Activity: Diet: Medications: Follow-up: Other: Laboratory Tests 11/06/19 04:30 Assessment/Plan Date Seen The patient was seen on 11/06/19. Plan/VTE VTE Prophylaxis Ordered?: Yes VTE Exclusion Mechanical Proph: N/A:VTE Prophy Ordered Plan Diet: Continue Current Activity: Encourage Ambulation Anticipated Discharge: Home (likely home tomorrow) VERONA MCNEILL MD Nov 06, 2019 10:17
--- NOTE | 2019-11-06 10:47 | IPN ---
DATE: 11/06/2019 Magys blood pressure is coming down. It is responding to the medication. He is a little fatigued, he gets a bit orthostatic and dizzy and when he stands. I do not think that he is ready for discharge yet. PHYSICAL EXAMINATION: Blood pressure 120/86, pulse 60. GENERAL APPEARANCE: Alert, conversant, no distress. LUNGS: Clear. HEART: Regular rhythm. ABDOMEN: Soft, nontender. EXTREMITIES: No peripheral edema. LABORATORIES: Creatinine is down to 1.8. CBC is stable. IMPRESSION: 1. Hypertension. Blood pressure is under better control. Medications have been adjusted. I think that he needs another day here to get accommodated to his medical regimen. 2. Chronic kidney disease, acute kidney injury secondary to nephrectomy. Per urology.
[2019-11-06] MEDS ORDERED: SLF 3 ML SYR IV PRN (13:45)
[2019-11-06] MEDS: SLF 3 ML SYR IV SCH ×2 (17:42→21:01)
[2019-11-07] VITALS (14 sets, daily range): BP systolic 130–178; BP diastolic 76–120; O2SAT 88–95
[2019-11-07 05:33] LABS: HEMATOCRIT 41.4 % (42.0-52.0); HEMOGLOBIN 13.4 g/dl (13.5-17.5); MEAN CORPUSCULAR HEMOGLOBIN 31.5 pg (27.0-33.0); MEAN CORPUSCULAR HGB CONC 32.4 g/dl (32.0-36.5); MEAN CORPUSCULAR VOLUME 97.2 fl (80.0-96.0); PLATELET COUNT, AUTOMATED 220 10^3/uL (150-450); RED BLOOD COUNT 4.26 10^6/uL (4.30-6.10); WHITE BLOOD COUNT 8.7 10^3/uL (4.0-10.0)
[2019-11-07] MEDS: LABETALOL 100 MG TAB PO SCH ×3 (05:52→21:45)
[2019-11-07 05:53] LABS: CALCIUM LEVEL 8.4 MG/DL (8.8-10.2); CREATININE FOR GFR 1.61 MG/DL (0.70-1.30); GLOMERULAR FILTRATION RATE 44.9 (>42); POTASSIUM SERUM 4.1 MEQ/L (3.5-5.1)
[2019-11-07] MEDS: SLF 3 ML SYR IV SCH ×3 (05:53→21:46)
[2019-11-07] MEDS: PERCOCET 5MG/325MG TAB PO PRN ×4 (05:53→23:46)
[2019-11-07] MEDS: SIMVASTATIN 20 MG TAB PO SCH (08:37)
[2019-11-07] MEDS: DOCUSATE SODIUM 100 MG CAP PO SCH ×2 (08:37→21:45)
[2019-11-07] MEDS: FINASTERIDE 5 MG TAB PO SCH (08:38)
--- NOTE | 2019-11-07 09:39 | ECGEPIP ---
[facility] Test Date: 2019-11-07 Pat Name: BOZENA WORKMAN Department: Room: [place] [address] Gender: Male Glass Glazier: DOROTHY : 1945 Requested By: Kilo Montalvo Order Number: [id number] Reading MD: Ajit Cordero Measurements Intervals [place] Rate: 58 P: -4 AR: 211 QRS: 19 QRSD: 82 T: 43 QT: 425 QTc: 419 Interpretive Statements SINUS BRADYCARDIA WITH SINUS ARRHYTHMIA WITH FIRST DEGREE AV BLOCK Electronically Signed on 11-07-2019 9:39:18 EST by Ajit Cordero
--- NOTE | 2019-11-07 10:40 | IPNPDOC ---
Subjective Review oF Systems Chief Complaint The patient is a 74-year-old male admitted with a reason for visit of Renal Mass. Events since Last Encounter Pt stills feels weak and lethargic. Has not had a solid BM but is passing fla tus. Has some BP issues that are being evaluated by internal medicine. General: Denies: Chills, Night Sweats Constitutional: Denies: Fever Gastrointestinal: Reports: Constipation; Denies: Nausea, Vomiting, Abdominal Pain, Diarrhea Genitourinary: Denies: Frequency, Hematuria, Retention Psych: Reports: Mood Normal; Denies: Anxiety, Memory Issues Objective Physical Examination General Exam: Alert, Cooperative, No Acute Distress ABDOMEN EXAM: Soft, Other (incisions clean/dry/intact); No: Tenderness (mild) Male Exam: Normal Genital Exam (bladder not distended) Skin Exam: Nl turgor and temperature; No: Rash Neuro Exam: Normal Speech Psych Exam: Mental status NL, Mood NL; No: Anxiety Vital Signs/I&O Vital Signs Date Time Temp Pulse Resp B/P (MAP) Pulse Ox O2 Delivery O2 Flow Rate FiO2 11/07/19 08:00 98.0 55 20 178/120 (139) 97 Room Air 11/07/19 07:00 2.0 I&O- Last 24 Hours up to 6 AM 11/07/19 05:59 Intake Total 840 ml Output Total 1250 ml Balance -410 ml Laboratory Data Labs 24H Laboratory Tests 2 11/07/19 04:50: Nucleated Red Blood Cells % (auto) 0.0, Anion Gap 8, Glomerular Filtration Rate 44.9, Calcium Level 8.4L CBC/BMP Laboratory Tests 11/07/19 04:50 Assessment/Plan Date Seen The patient was seen on 11/07/19. Plan/VTE VTE Prophylaxis Ordered?: Yes VTE Exclusion Mechanical Proph: N/A:VTE Prophy Ordered Plan Diet: Continue Current Activity: Encourage Ambulation Anticipated Discharge: Home (try for home tomorrow) VERONA MCNEILL MD Nov 07, 2019 10:40
[2019-11-07] MEDS: **hydrALAZINE** 10 MG TAB PO SCH ×2 (13:16→21:46)
[2019-11-07] MEDS: MIRALAX *UNIT DOSE* 17GM PACKET PO PRN (13:22)
[2019-11-07] MEDS: SENOKOT S TAB PO PRN (13:22)
--- NOTE | 2019-11-07 14:09 | IPN ---
DATE: 11/07/2019 Sarwat's blood pressure is still elevated at 178/120 this morning. He is getting a little agitated over his hospitalization. No chest pain or shortness of breath. He is status post right nephrectomy. He has not had a hypertension problem for many years and now his blood pressure is significantly elevated since the nephrectomy raising a question about whether this might have unmasked renal artery stenosis in the remaining kidney. PHYSICAL EXAMINATION: Vital signs as listed. She is alert, conversant and in no distress. Lungs clear. Heart regular rhythm. Abdomen soft. Nontender. No peripheral edema. LABS: CBC unremarkable. Electrolytes unremarkable. Creatinine is down to 1.6, which is the best it has been since the nephrectomy. IMPRESSION: 1. Hypertension. Blood pressure can be erratic after nephrectomy, but it is unusual to be up to this extent requiring escalation of blood pressure medications on a daily basis. I am going to order a renal Doppler ultrasound to make sure there is no occult left renal artery stenosis at play here unmasked by right nephrectomy. I have adjusted his antihypertensives. He should remain on telemetry in the PCU. He is not ready for discharge yet.
[2019-11-07] MEDS: ONDANSETRON 4MG/2ML VIAL (J2405) IV PRN (15:00)
[2019-11-08] MEDS: ONDANSETRON 4MG/2ML VIAL (J2405) IV PRN (00:20)
[2019-11-08 04:00] VITALS: BP 156/76
[2019-11-08 05:09] LABS: HEMATOCRIT 41.5 % (42.0-52.0); HEMOGLOBIN 13.6 g/dl (13.5-17.5); MEAN CORPUSCULAR HEMOGLOBIN 31.4 pg (27.0-33.0); MEAN CORPUSCULAR HGB CONC 32.8 g/dl (32.0-36.5); MEAN CORPUSCULAR VOLUME 95.8 fl (80.0-96.0); PLATELET COUNT, AUTOMATED 253 10^3/uL (150-450); RED BLOOD COUNT 4.33 10^6/uL (4.30-6.10)
[2019-11-08 05:21] LABS: CALCIUM LEVEL 8.7 MG/DL (8.8-10.2); CREATININE FOR GFR 1.7 MG/DL (0.70-1.30); GLOMERULAR FILTRATION RATE 42.2 (>42); POTASSIUM SERUM 4.1 MEQ/L (3.5-5.1)
[2019-11-08] MEDS: LABETALOL 100 MG TAB PO SCH ×3 (05:37→21:57)
[2019-11-08] MEDS: SLF 3 ML SYR IV SCH ×3 (05:38→21:58)
[2019-11-08] MEDS: **hydrALAZINE** 10 MG TAB PO SCH ×3 (05:38→21:58)
[2019-11-08 08:00] VITALS: BP 165/100
[2019-11-08] MEDS ORDERED: BISACODYL 10 MG SUPP PR ONE (09:00)
--- NOTE | 2019-11-08 09:39 | REP ---
Clinical: Hypertension and chronic medical renal disease. History of right nephrectomy. Technique: Brewer scale and color Doppler evaluation of the kidneys and renal vasculature using curved array transducer. Findings: Left kidney is normal in contour, size, echogenicity, and reniform shape without hydronephrosis, nephrolithiasis, cystic or renal mass lesion. Kidney measures 11.8 cm in length. Color Doppler evaluation is severely limited due to extensive overlying bowel gas. Left intrarenal arteries demonstrate parvus tardus wave patterns with otherwise normal resistive indices and acceleration times. Left kidney: Peak arterial velocity: Not obtainable due to overlying bowel gas Renal aortic ratio: Not obtainable Resistive indices: 0.59 - 0.64 . Acceleration times: 0.036 - 0.053 . Impression: 1. Normal appearance to the left kidney. 2. Limited Doppler evaluation may warrant MRA evaluation for further investigation. Electronically Signed by Foreign Diterich MD 11/08/2019 09:30 A
[2019-11-08] MEDS: DOCUSATE SODIUM 100 MG CAP PO SCH ×2 (09:40→21:57)
[2019-11-08] MEDS: SIMVASTATIN 20 MG TAB PO SCH (09:40)
[2019-11-08] MEDS: FINASTERIDE 5 MG TAB PO SCH (09:41)
[2019-11-08] MEDS: SIMETHICONE 80 MG CHEW TAB PO PRN ×2 (10:46→21:56)
[2019-11-08] MEDS: MIRALAX *UNIT DOSE* 17GM PACKET PO PRN (11:58)
[2019-11-08] MEDS: SENOKOT S TAB PO PRN (11:58)
[2019-11-08 12:00] VITALS: BP 136/90
--- NOTE | 2019-11-08 12:45 | IPN ---
DATE: 11/08/2019 Sarwat's blood pressure is still intermittently elevated. It was 165/100 this morning. No chest pain, shortness of breath, or dyspnea on exertion. He is able to walk in the hallway. We did Doppler renal ultrasound which was fairly limited due to bowel gas. Nothing remarkable seen but not able to rule out renal artery stenosis on that side. PHYSICAL EXAMINATION: Blood pressure 165/100, pulse 65, 95% oxygen saturation. He looks well. He is resting comfortably. He is walking with his using a walker. Lungs: Clear. Heart: Regular rhythm. Abdomen: Soft, nontender. No peripheral edema. LABS: Electrolytes unremarkable. Creatinine is 1.7, which is stable. CBC unremarkable. IMPRESSION: 1. Accelerated hypertension: Renal ultrasound did not show renal artery stenosis. Outpatient MRA could be considered. Does not need this done in the hospital. Blood pressure medications were adjusted again today. Patient should be stable for discharge tomorrow. 2. Hyperlipidemia: Continue on simvastatin 20 mg daily. 3. Benign prostatic hypertrophy: Continue his finasteride and tamsulosin. Discussed the case with Dr. Colon. Patient was on the urology service but has been kept in the hospital for medical care presumably dealing with hypertension issues. He transferred the care onto the hospitalist service. Dr. Colon will arrange his postop urology visit. He has already sent in prescriptions for Colace and some oxycodone, acetaminophen for pain control so when it comes time for discharge, his analgesic needs have already been met.
--- NOTE | 2019-11-08 13:50 | IPNPDOC ---
Subjective Review oF Systems Chief Complaint The patient is a 74-year-old male admitted with a reason for visit of Renal Mass. Events since Last Encounter No acute events o/n. Patient still noting moderate abdominal discomfort. No n/v. Tolerating diet. No f/c/ns. Objective Physical Examination General Exam: Alert, Cooperative, No Acute Distress ABDOMEN EXAM: Soft, Tenderness (mild), Other (incisions clean/dry/intact) Skin Exam: Nl turgor and temperature; No: Rash Neuro Exam: Normal Speech Psych Exam: Mental status NL, Mood NL; No: Anxiety Vital Signs/I&O Vital Signs Date Time Temp Pulse Resp B/P (MAP) Pulse Ox O2 Delivery O2 Flow Rate FiO2 11/08/19 12:00 97.7 70 24 136/90 (105) 92 Room Air 11/07/19 07:00 2.0 I&O- Last 24 Hours up to 6 AM 11/08/19 06:00 Intake Total 1020 ml Output Total 1875 ml Balance -855 ml Laboratory Data Labs 24H Laboratory Tests 2 11/08/19 04:34: Nucleated Red Blood Cells % (auto) 0.0, Anion Gap 8, Glomerular Filtration Rate 42.2, Calcium Level 8.7L CBC/BMP Laboratory Tests 11/08/19 04:34 Assessment/Plan Date Seen The patient was seen on 11/08/19. Patient Summary This is a 74 y/o M POD6 s/p right robotic radical nephrectomy. He was kept in house over the weekend due to difficulty controlling his BP. He is now on hydralazine and labetalol. The patient has still been requiring a moderate amount of percocet for pain. It appears that his pain is not due to his incisions, but likely from bloating from an ileus. He is passing small amounts of flatus and noted that he had a small bm yesterday. His abdominal discomfort improves when he passes flatus. Plan/VTE VTE Prophylaxis Ordered?: Yes VTE Exclusion Mechanical Proph: N/A:VTE Prophy Ordered Plan - appreciate hospitalist service management and w/u of new onset HTN - discussed w/ patient the need to decrease narcotics to help w/ his ileus - dulcolax suppository ordered - regular diet - will transfer patient's care to hospitalist service for management of HTN - patient's f/u has been arranged to be seen in office in 1 wk Diet: Continue Current Activity: Encourage Ambulation Anticipated Discharge: Home (try for home tomorrow) DOMENICA BELLE MD Nov 08, 2019 13:50
[2019-11-08 16:00] VITALS: BP 140/95
[2019-11-08 20:00] VITALS: BP 136/62
[2019-11-08] MEDS: PERCOCET 5MG/325MG TAB PO PRN (21:57)
[2019-11-08 23:59] VITALS: BP 125/77
[2019-11-09 04:00] VITALS: BP 138/87
[2019-11-09 05:12] LABS: HEMATOCRIT 41.5 % (42.0-52.0); HEMOGLOBIN 13.6 g/dl (13.5-17.5); MEAN CORPUSCULAR HEMOGLOBIN 31.7 pg (27.0-33.0); MEAN CORPUSCULAR HGB CONC 32.8 g/dl (32.0-36.5); MEAN CORPUSCULAR VOLUME 96.7 fl (80.0-96.0); PLATELET COUNT, AUTOMATED 264 10^3/uL (150-450); RED BLOOD COUNT 4.29 10^6/uL (4.30-6.10); WHITE BLOOD COUNT 9.6 10^3/uL (4.0-10.0)
[2019-11-09 05:23] LABS: CALCIUM LEVEL 8.2 MG/DL (8.8-10.2); CREATININE FOR GFR 1.51 MG/DL (0.70-1.30); GLOMERULAR FILTRATION RATE 48.3 (>42); POTASSIUM SERUM 3.9 MEQ/L (3.5-5.1)
[2019-11-09] MEDS: PERCOCET 5MG/325MG TAB PO PRN (05:47)
[2019-11-09] MEDS: LABETALOL 100 MG TAB PO SCH (05:47)
[2019-11-09 05:48] VITALS: BP 130/88
[2019-11-09] MEDS: SLF 3 ML SYR IV SCH (05:48)
[2019-11-09] MEDS: **hydrALAZINE** 10 MG TAB PO SCH (05:48)
[2019-11-09 08:00] VITALS: BP 125/82
[2019-11-09] MEDS: SIMVASTATIN 20 MG TAB PO SCH (08:16)
[2019-11-09] MEDS: DOCUSATE SODIUM 100 MG CAP PO SCH (08:16)
[2019-11-09] MEDS: FINASTERIDE 5 MG TAB PO SCH (08:17)
[2019-11-09] MEDS ORDERED: LABE10TAB PO (10:18)
[2019-11-09] MEDS ORDERED: HYDR10TAB PO (10:18)
--- NOTE | 2019-11-10 17:36 | DS.PDOC ---
Discharge Summary General Date of Admission Nov 02, 2019 at 06:01 Date of Discharge November 09, 2019 Specialist/Consultants Involve: DOMENICA BELLE MD Discharge Summary PROCEDURES PERFORMED DURING STAY: [R. nephrectomy]. ADMITTING DIAGNOSES: R. renal mass DISCHARGE DIAGNOSES: R. renal mass-s/p nephrectomy; essential hypertension; BPH, dyslipidemia COMPLICATIONS/CHIEF COMPLAINT: Renal Mass. HISTORY OF PRESENT ILLNESS/HOSPITAL COURSE: 74 year old male found to have R. renal mass. Underwent nephrectomy by Urology service. Developed post-op hypertension, felt to be due to post op renal changes. Responded well to treatment with labetalol and hydralazine. Outpatient renal MRA recommended. There were no other post-op issues. DISCHARGE MEDICATIONS: Please see below. ALLERGIES: Please see below. PHYSICAL EXAMINATION ON DISCHARGE: VITAL SIGNS: Please see below. HEENT: [neck supple and without adenopathy or thyromegaly] CARDIOVASCULAR EXAMINATION: [RRR, no murmur] RESPIRATORY EXAMINATION: [clear to auscultation] ABDOMINAL EXAMINATION: [soft, mildly tender, incision site intact] EXTREMITIES: [no edema LABORATORY DATA: Please see below. IMAGING: PROGNOSIS: ACTIVITY: [As tolerated]. DIET: [as tolerated] DISCHARGE PLAN: [Patient was otherwise stable for discharge to home. Will follow up with Urology as scheduled.] DISPOSITION: Home, Self-Care. DISCHARGE INSTRUCTIONS: 1. . ITEMS TO FOLLOWUP ON ON OUTPATIENT: 1. . DISCHARGE CONDITION: [Stable]. TIME SPENT ON DISCHARGE: [40] minutes. Vital Signs/I&Os Vital Signs Date Time Temp Pulse Resp B/P (MAP) Pulse Ox O2 Delivery O2 Flow Rate FiO2 11/09/19 08:00 98.0 54 18 125/82 (96) 95 Room Air 11/07/19 07:00 2.0 I&O- Last 24 Hours up to 6 AM 11/10/19 06:00 Intake Total 600 ml Balance 600 ml Discharge Medications Scheduled Cholecalciferol (Vitamin D3) (Vitamin D3) 1,000 Unit Tablet, 1,000 UNIT PO QHS, (Reported) Docusate Sodium (Docusate Sodium) 100 Mg Capsule, 100 MG PO BID, (Reported) Finasteride (Finasteride) 5 Mg Tab, 5 MG PO QHS, (Reported) Hydralazine HCl (Hydralazine HCl) 10 Mg Tablet, 10 MG PO Q8H, (Reported) Labetalol HCl (Labetalol HCl) 100 Mg Tablet, 50 MG PO Q8H, (Reported) Lovastatin (Lovastatin) 40 Mg Tab, 20 MG PO QHS, (Reported) Multivitamins (Thera M Plus Tablet) 1 Each Tablet, 1 TAB PO QHS, (Reported) Scheduled PRN Albuterol Sulfate (Proair Hfa) 8.5 Gm Hfa.aer.ad, 2 PUFF INH QID PRN for SHORTNESS OF BREATH, (Reported) Oxycodone HCl/Acetaminophen (Oxycodone-Acetaminophen 5-325) 1 Each Tablet, 1-2 TAB PO Q6H PRN for MODERATE/SEVERE PAIN (PS 5-10), (Reported) Allergies Coded Allergies: No Known Allergies (Unverified , 11/02/19) KENNETH MALDONADO MD Nov 10, 2019 17:36
== END 2019-11-09 12:37 | disposition home or self-care (01) | DRG 657 ==
LOC: M OR 06:01 → M MSPAV 13:41 → M PCU 11-04 04:57
PROVIDERS: ADMIT Urology; ATTEND Internal Medicine
PROC: 8E0W4CZ Robotic Assisted Procedure of Trunk Region, Percutaneous Endoscopic Approach (ICD-10-PCS; 2019-11-02)
PROC: 0TT04ZZ Resection of Right Kidney, Percutaneous Endoscopic Approach (ICD-10-PCS; principal; 2019-11-02 07:30)
DX: C64.1 Malignant neoplasm of right kidney, except renal pelvis (principal); K56.7 Ileus, unspecified; N17.9 Acute kidney failure, unspecified; I97.3 Postprocedural hypertension; E78.5 Hyperlipidemia, unspecified; I12.9 Hypertensive chronic kidney disease with stage 1 through stage 4 chronic kidney disease, or unspecified chronic kidney disease; N40.0 Benign prostatic hyperplasia without lower urinary tract symptoms; N18.9 Chronic kidney disease, unspecified; Z79.899 Other long term (current) drug therapy

== ENCOUNTER → 2019-11-15 | Outpatient (CLI) | payer MEDICARE ==
[~2019-11-15] MED LIST changes: +DOCU100C16 PO; +HYDR10TAB PO; +LABE10TAB PO; -LIDOCAINE 1% MDV 20ML VIAL SQ PRN; -LR 1,000 ML IV SCH; +PERCOCET PO; -ceFAZolin SOD 2 GM in IV 1 EA IV ONE
[2019-11-15 18:49] LABS: CALCIUM LEVEL 8.6 MG/DL (8.8-10.2); CREATININE FOR GFR 1.66 MG/DL (0.70-1.30); GLOMERULAR FILTRATION RATE 43.3 (>42); POTASSIUM SERUM 5.1 MEQ/L (3.5-5.1)
[2019-11-15 18:50] LABS: MEAN CORPUSCULAR HEMOGLOBIN 31.9 pg (27.0-33.0); MEAN CORPUSCULAR HGB CONC 32.6 g/dl (32.0-36.5); MEAN CORPUSCULAR VOLUME 97.9 fl (80.0-96.0); PLATELET COUNT, AUTOMATED 440 10^3/uL (150-450); RED BLOOD COUNT 4.39 10^6/uL (4.30-6.10); WHITE BLOOD COUNT 11.6 10^3/uL (4.0-10.0)
== END ==
LOC: M PLALAB 13:48
PROVIDERS: ATTEND Urology
DX: C64.9 Malignant neoplasm of unspecified kidney, except renal pelvis (principal); Z90.5 Acquired absence of kidney

== ENCOUNTER 2019-11-17 19:44 | Inpatient (IN) | payer MEDICARE ==
[~2019-11-17] VITALS: Ht 180.3 cm; Wt 85.9 kg
[2019-11-17] MEDS ORDERED: LABETALOL HCL 100 MG/20 ML VIAL IV STA ×2 (20:34→21:32)
[2019-11-17 20:45] LABS: BASO # 0.1 10^3/uL (0.0-0.2); BASO % 0.3 % (0.0-1.0); EOS # 0.4 10^3/uL (0.0-0.5); EOS % 1.9 % (0.0-3.0); HEMATOCRIT 44.5 % (42.0-52.0); HEMOGLOBIN 14.3 g/dl (13.5-17.5); LYMPH # 0.7 10^3/uL (1.5-5.0); LYMPH % 3.6 % (24.0-44.0); MEAN CORPUSCULAR HEMOGLOBIN 31.1 pg (27.0-33.0); MEAN CORPUSCULAR HGB CONC 32.1 g/dl (32.0-36.5); MEAN CORPUSCULAR VOLUME 96.7 fl (80.0-96.0); MONO # 0.8 10^3/uL (0.0-0.8); MONO % 4.2 % (0.0-5.0); NEUTROPHILS # 17.7 10^3/uL (1.5-8.5); NEUTROPHILS % 89.4 % (36.0-66.0); PLATELET COUNT, AUTOMATED 433 10^3/uL (150-450); WHITE BLOOD COUNT 19.8 10^3/uL (4.0-10.0)
[2019-11-17] MEDS ORDERED: ONDANSETRON 4MG/2ML VIAL (J2405) IV ONE (20:45)
[2019-11-17 20:49] LABS: INR 1.14; PROTHROMBIN TIME 14.3 SECONDS (11.8-14.0)
[2019-11-17 20:55] LABS: ALBUMIN 3.5 GM/DL (3.2-5.2); BILIRUBIN,DIRECT 0.2 MG/DL (0.0-0.2); BILIRUBIN,TOTAL 0.7 MG/DL (0.2-1.0); CALCIUM LEVEL 8.7 MG/DL (8.8-10.2); CREATININE FOR GFR 1.65 MG/DL (0.70-1.30); GLOMERULAR FILTRATION RATE 43.6 (>42); POTASSIUM SERUM 4.6 MEQ/L (3.5-5.1); TOTAL PROTEIN 6.9 GM/DL (6.4-8.2)
[2019-11-17] MEDS ORDERED: PERCOCET 5MG/325MG TAB PO ONE (21:30)
--- NOTE | 2019-11-17 21:56 | REPVR ---
PROCEDURE INFORMATION: Exam: CT Abdomen And Pelvis Without Contrast Exam date and time: 11/17/2019 8:57 PM Age: 74 years old Clinical indication: Abdominal pain; Generalized; Prior surgery; Surgery date: <1 month; Surgery type: Post nephrectomy right side; Additional info: Abd pain post surg TECHNIQUE: Imaging protocol: Computed tomography of the abdomen and pelvis without contrast. Radiation optimization: All CT scans at this facility use at least one of these dose optimization techniques: automated exposure control; mA and/or kV adjustment per patient size (includes targeted exams where dose is matched to clinical indication); or iterative reconstruction. COMPARISON: CT ABD PELVIS WITH CONTRAST 2019-09-02 15:06 FINDINGS: Pleural space: Small right-sided pleural effusion with right lower lobe atelectasis and consolidation. Right lower lung pleural calcifications. Diaphragm: Elevation of the right hemidiaphragm. Liver: Normal. No mass. Gallbladder and bile ducts: Normal. No calcified stones. No ductal dilation. Pancreas: Normal. No ductal dilation. Spleen: Normal. No splenomegaly. Adrenals: Normal. No mass. Kidneys and ureters: Right nephrectomy with a small amount of fluid in the nephrectomy bed, as expected. 2.5 cm left renal cyst. Stomach and bowel: Mild colonic diverticulosis without evidence for acute diverticulitis. Appendix: No evidence of appendicitis. Intraperitoneal space: Unremarkable. No free air. No significant fluid collection. Vasculature: Unremarkable. No abdominal aortic aneurysm. Lymph nodes: Unremarkable. No enlarged lymph nodes. Bladder: Unremarkable as visualized. Reproductive: Unremarkable as visualized. Bones/joints: Moderate lumbar spondylosis. Lumbar scoliosis. Soft tissues: Abdominal wall kaleb. IMPRESSION: 1. Small right-sided pleural effusion with right lower lobe atelectasis and consolidation. 2. Right nephrectomy with a small amount of fluid in the nephrectomy bed, as expected. Electronically signed by: Ajit Lui On 11/17/2019 21:56:17 PM
[2019-11-17] MEDS ORDERED: cefTRIAXone SOD 1 GM in D5W MINI-BAG PLUS 50 ML IV ONE (22:15)
[2019-11-17] MEDS ORDERED: HYDR10TAB PO (23:03)
[2019-11-17] MEDS ORDERED: VITA100066 PO (23:03)
[2019-11-17] MEDS ORDERED: DOCU100C16 PO (23:03)
[2019-11-17] MEDS ORDERED: LABE10TAB PO (23:03)
[2019-11-17] MEDS ORDERED: VITMTA PO (23:03)
[2019-11-17] MEDS ORDERED: OXYC1TAB23 PO (23:03)
[2019-11-17 23:16] LABS: INFLUENZA A AMPLIFICATION NEGATIVE (NEGATIVE); INFLUENZA B AMPLIFICATION NEGATIVE (NEGATIVE)
[2019-11-17] MEDS ORDERED: ALBUTEROL 90 MCG/ACT 8GM HFA INHALER INH PRN (23:45)
[2019-11-17] MEDS ORDERED: ONDANSETRON 4 MG TAB (S0181) PO PRN (23:45)
[2019-11-17] MEDS ORDERED: MOM 30ML SUSPENSION UDC PO PRN (23:45)
[2019-11-17] MEDS ORDERED: MAALOX 30 ML SUSP *UDC PO PRN (23:45)
--- NOTE | 2019-11-17 23:57 | IPNPDOC ---
Text Note Date of Service The patient was admitted on 11/17/19 & seen on 11/18/19. NOTE I examined at 1201AM, reviewed 's note and agree with the findings as documented. VS,Fishbone, I+O VS, Fishbone, I+O Laboratory Tests 11/17/19 20:00 Vital Signs Date Time Temp Pulse Resp B/P (MAP) Pulse Ox O2 Delivery O2 Flow Rate FiO2 11/17/19 23:45 100.2 76 104/56 (72) 91 11/17/19 22:45 Room Air 11/17/19 21:34 22 WILL WHEELER MD Nov 17, 2019 23:57
--- NOTE | 2019-11-18 00:05 | HPEPDOC ---
[facility] Medical History & Physical Date of Admission Nov 17, 2019 Date of Service: Nov 18, 2019 Primary Care Physician: Olena La Attending Physician: WILL WHEELER MD History and Physical CHIEF COMPLAINT: flank pain HISTORY OF PRESENT ILLNESS: Sarwat Harrington is a 74 year old man who presented to the ED with increasing pain in his torso and abdomen, worst over his right flank, and elevated blood pressure with systolic in the 190s at home. He reports a recent right radical nephrectomy performed on 11/02/[address] Colon for a renal mass which was found to be renal cell carcinoma. The patient states he was discharged on 11/09/2019 from the hospital and had been taken Percocet one to 2 pills every 6 hours for the pain. He states he has been trying to cut back on the Percocet and since then his pain has become out of control. He also notes that he has had elevated blood pressures since his surgery and was started on 2 medications. During his admission post operatively to help keep his blood pressure under control. He states prior to his surgery. He does note that he has a history of hypertension in the past but has been off medication for at least 6 years until after his surgery last month. On review of systems, the patient notes that he has had chills recently and has had a hard time keeping warm. He also notes that he has a cough in the mornings, which brings up clear mucus or sputum. He also notes a mild headache and intermittent dizziness which he thinks is related to when his blood pressure is elevated. REVIEW OF SYSTEMS: CONSTITUTIONAL: Endorses chills today. Denies fevers, night sweats, fatigue, unexpected change in weight. HEENT: Denies change in vision, change in hearing. CARDIOVASCULAR: Denies chest pain, palpitations, shortness of breath, lightheadedness. RESPIRATORY: Endorses pain with deep inspiration and morning cough with small amount of clear sputum/mucus production. Denies wheezing. GASTROINTESTINAL: Endorses nausea. Denies vomiting, abdominal pain, diarrhea, constipation, blood in stool. GENITOURINARY: Denies dysuria, urinary frequency, urinary urgency. SKIN: Denies rash, lesions. MUSCULOSKELETAL: Endorse flank pain as described in HPI. Denies new joint pains. NEUROLOGICAL: Endorses mild headache and intermittent dizziness. Denies weakness. PSYCHIATRIC: Denies change in mood. PAST MEDICAL HISTORY: 1. Renal cell carcinoma, s/p R radial nephrectomy 2. Chronic Hypertension since recent operation and in the remote past 3. Hyperlipidemia 4. BPH PAST SURGICAL HISTORY: 1. Right robotic radical nephrectomy on 11/02/19 2. L knee replacement 2010 3. L shoulder surgery 1964 4. Umbilical hernia repair 5. Multiple dupuytren's contracture releases SOCIAL HISTORY: Denies history of tobacco or illicit/IV drug use Occasional alcohol use, last time at least 1 month ago Lives at home with FAMILY HISTORY: Father: pulmonary disease, smoker Mother: pulmonary disease, smoker Hx of lung cancer in aunt and uncle ALLERGIES: Please see below. HOME MEDICATIONS: Please see below. PHYSICAL EXAMINATION: VITAL SIGNS: See below GENERAL: Alert, comfortable, in no acute distress HEENT: Normocephalic, atraumatic, PERRLA, EOMI, moist mucous membranes NECK: Supple, trachea midline, no lymphadenopathy, no JVD CARDIOVASCULAR: Regular rate and rhythm, normal S1 and S2. No murmurs, rubs, or gallops RESPIRATORY: Course rhonchi in the left lateral lung base, remaining lung field clear to auscultation. No wheezing or rales. ABDOMEN: Mildly tender throughout. Soft, nondistended, bowel sounds present, no masses or hepatosplenomegaly appreciated EXTREMITIES: No cyanosis or edema. Pulses 2+/4 in bilateral upper and lower extremities SKIN: [place], warm, dry NEUROLOGIC: Alert and oriented 3 to person, place and time. Cranial nerves 2-12 grossly intact. No focal deficits appreciated PSYCHIATRIC: Mood and affect appropriate LABORATORY DATA: See below. IMAGING: CT abdomen/pelvis: 1. Small right-sided pleural effusion with right lower lobe atelectasis and consolidation. 2. Right nephrectomy with a small amount of fluid in the nephrectomy bed, as expected. MICROBIOLOGY: Please see below. ASSESSMENT/PLAN: 74-year-old male with acute right radical nephrectomy presents to emergency department with elevated blood pressure and intractable pain, admitted to the hospital for pneumonia found on CT imaging, blood pressure con trol and monitoring, and pain control 1. Sepsis 2/2 Community acquired pneumonia. CURB-65 score of 2 with BUN above 19 and age over 65 = moderate risk = Consider inpatient treatment or outpatient with close followup. -SIRS Criterial include RR >22 and WBC # >12.5 -The lactic acid is wnl. Antibiotic coverage with ceftriaxone and azithromycin day #1 of 7 + IVF Flu A and B negative. Sputum culture, MRSA, strep Pneumo and legionella ordered Incentive spirometry for area of atelectasis on CT, Acapella to help clear mucus 2. Chronic Hypertension Likely elevated due to the patient's increased pain as he has been cutting back on his pain medications at home s/p 5 mg IV labetalol in the ED with improvement of his blood pressure. Continue home blood pressure regimen with PO labetalol and hydralazine and adjust as necessary Expect improvement of his hypertension with better pain control 3. Right flank pain. Pain management with Percocet while inpatient. Expected hypertension to improve with better pain control. Continue Colace twice a day 4. Mild Renal Insufficiency - his GFR has decreased while his Cr and BUN have increased since Oct 13 - negative UA - continue to monitor daily BMP 5. Renal cell carcinoma. No evidence of complication seen on CT imaging. Follow up outpatient with urology scheduled DVT prophylaxis: SC heparin, Danilo stockings Disposition: likely home after more than 2 midnight's stay (inpatient med/surg) Vital Signs Vital Signs Date Time Temp Pulse Resp B/P (MAP) Pulse Ox O2 Delivery O2 Flow Rate FiO2 11/17/19 22:45 76 101/52 (68) 91 Room Air 11/17/19 21:34 22 11/17/19 19:44 98.6 Laboratory Data Labs 24H Laboratory Tests 2 11/17/19 20:00: Immature Granulocyte % (Auto) 0.6, Neutrophils (%) (Auto) 89.4H, Lymphocytes (%) (Auto) 3.6L, Monocytes (%) (Auto) 4.2, Eosinophils (%) (Auto) 1.9, Basophils (%) (Auto) 0.3, Neutrophils # (Auto) 17.7H, Lymphocytes # (Auto) 0.7L, Monocytes # (Auto) 0.8, Eosinophils # (Auto) 0.4, Basophils # (Auto) 0.1, Nucleated Red Blood Cells % (auto) 0.0, Prothrombin Time 14.3H, Prothromb Time International Ratio 1.14, Anion Gap 11, Glomerular Filtration Rate 43.6, Calcium Level 8.7L, Total Bilirubin 0.7, Direct Bilirubin 0.2, Aspartate Amino Transf (AST/SGOT) 16, Alanine Aminotransferase (ALT/SGPT) 41, Alkaline Phosphatase 73, Total Protein 6.9, Albumin 3.5, Albumin/Globulin Ratio 1.03, Lipase 190 11/17/19 20:43: Urine Color YELLOW, Urine Appearance CLEAR, Urine pH 6.0, Urine Specific [place] 1.019, Urine Protein NEGATIVE, Urine Glucose (UA) NEGATIVE, Urine Ketones TRACEH, Urine Blood NEGATIVE, Urine Nitrite NEGATIVE, Urine Bilirubin NEGATIVE, Urine Urobilinogen 0.2, Urine Leukocyte Esterase NEGATIVE, Urine WBC (Auto) 0, Urine RBC (Auto) 2, Urine Hyaline Casts (Auto) 0, Urine Bacteria (Auto) NEGATIVE, Urine Squamous Epithelial Cells 0, Urine Mucus (Auto) SMALL, Urine Sperm (Auto) 11/17/19 22:28: Influenza Type A (RT-PCR) NEGATIVE, Influenza Type B (RT-PCR) NEGATIVE CBC/BMP Laboratory Tests 11/17/19 20:00 Home Medications Scheduled Cholecalciferol (Vitamin D3) (Vitamin D3) 1,000 Unit Tablet, 1,000 UNIT PO QHS Docusate Sodium (Docusate Sodium) 100 Mg Capsule, 100 MG PO BID Finasteride (Finasteride) 5 Mg Tab, 5 MG PO QHS Hydralazine HCl (Hydralazine HCl) 10 Mg Tablet, 10 MG PO Q8H Labetalol HCl (Labetalol HCl) 100 Mg Tablet, 50 MG PO Q8H Lovastatin (Lovastatin) 40 Mg Tab, 20 MG PO QHS Multivitamins (Thera M Plus Tablet) 1 Each Tablet, 1 TAB PO QHS Scheduled PRN Albuterol Sulfate (Proair Hfa) 8.5 Gm Hfa.aer.ad, 2 PUFF INH QID PRN for SHORTNESS OF BREATH Oxycodone HCl/Acetaminophen (Oxycodone-Acetaminophen 5-325) 1 Each Tablet, 1-2 TAB PO Q6H PRN for MODERATE/SEVERE PAIN (PS 5-10) Allergies Coded Allergies: No Known Allergies (Unverified , 11/02/19) A-FIB/CHADSVASC A-FIB History Current/History of A-Fib/PAF?: No Current PO Anticoag Therapy: No GME ATTESTATION GME ATTESTATION My faculty preceptor for this patient encounter was physically present during the encounter and was fully available. All aspects of the patient interview, examination, medical decision making process, and medical care plan development were reviewed and approved by the faculty preceptor. The faculty preceptor is aware and concurs with the plan as stated in the body of this note and will attest to such by his/her cosignature. ATTENDING NOTE Pls see addendum dated 11/17/19 DELANEY ROCKWELL D.O. Nov 17, 2019 23:35 WILL WHEELER MD Nov 18, 2019 03:18
[2019-11-18] MEDS ORDERED: SODIUM CHLORIDE 0.9% 1000ML IV SCH (00:30)
[2019-11-18] MEDS ORDERED: BENZONATATE 100 MG CAP PO SCH (00:30)
[2019-11-18 00:34] VITALS: BP 82/59
[2019-11-18 00:35] VITALS: BP 110/70
[2019-11-18] MEDS: BENZONATATE 100 MG CAP PO SCH ×3 (01:02→15:02)
[2019-11-18] MEDS: MULTIVITAMINS/MINERALS THERAP 1 TAB PO SCH ×2 (01:02→21:09)
[2019-11-18] MEDS: ACETAMINOPHEN 650MG ER TAB (TYLENOL ARTHRITIS) PO PRN (01:03)
[2019-11-18] MEDS: DOCUSATE SODIUM 100 MG CAP PO SCH ×3 (01:03→21:08)
[2019-11-18] MEDS: VITAMIN D 1,000 INTERNATIONAL UNITS TABLET PO SCH ×2 (01:03→21:08)
[2019-11-18] MEDS: SIMVASTATIN 40 MG TAB PO SCH ×2 (01:03→21:08)
[2019-11-18] MEDS: FINASTERIDE 5 MG TAB PO SCH ×2 (01:03→21:08)
[2019-11-18] MEDS: HEPARIN SOD (PORCINE) 5000 UNITS/ML VIAL SC SCH ×3 (05:37→21:09)
[2019-11-18 06:15] VITALS: BP 114/72
[2019-11-18] MEDS: PERCOCET 5MG/325MG TAB PO PRN (06:32)
[2019-11-18] MEDS: NS 1,000 ML IV SCH ×2 (06:32→16:34)
[2019-11-18 07:18] LABS: HEMATOCRIT 37.4 % (42.0-52.0); MEAN CORPUSCULAR HEMOGLOBIN 32.2 pg (27.0-33.0); MEAN CORPUSCULAR HGB CONC 32.9 g/dl (32.0-36.5); MEAN CORPUSCULAR VOLUME 97.9 fl (80.0-96.0); PLATELET COUNT, AUTOMATED 374 10^3/uL (150-450); RED BLOOD COUNT 3.82 10^6/uL (4.30-6.10); WHITE BLOOD COUNT 23.8 10^3/uL (4.0-10.0)
[2019-11-18 07:28] LABS: HEMOGLOBIN 12.3 g/dl (13.5-17.5)
[2019-11-18 07:47] LABS: CALCIUM LEVEL 8.1 MG/DL (8.8-10.2); CREATININE FOR GFR 1.73 MG/DL (0.70-1.30); GLOMERULAR FILTRATION RATE 41.3 (>42); POTASSIUM SERUM 4.1 MEQ/L (3.5-5.1)
[2019-11-18] MEDS: LABETALOL 100 MG TAB PO SCH ×2 (08:00→15:01)
[2019-11-18] MEDS ORDERED: AZITHROMYCIN INJ 500 MG, VIAL MATE ADAPTER 1 EACH in D5W 250 ML IV SCH (08:00)
[2019-11-18] MEDS ORDERED: **hydrALAZINE** 10 MG TAB PO SCH (08:00)
[2019-11-18] MEDS ORDERED: cefTRIAXone SOD 1 GM in D5W MINI-BAG PLUS 50 ML IV SCH (09:00)
[2019-11-18] MEDS ORDERED: SODIUM CHLORIDE 0.9% 1000ML IV ONE (09:15)
[2019-11-18] MEDS: PIPERACILLIN/TAZOBACTAM SOD 3.375 GM in D5W MINI-BAG PLUS 50 ML IV SCH ×3 (10:28→21:09)
--- NOTE | 2019-11-18 11:12 | IPNPDOC ---
Text Note Date of Service The patient was seen on 11/18/19. NOTE SUBJECTIVE: Continues to have severe right flank pain and difficulty in deep b reaths and coughing due to the pain. Low grade fever overnight. Has not had much urine output but denies any trouble getting it out. No nausea or vomiting or diarrhea. PHYSICAL EXAMINATION: VITAL SIGNS: See below GENERAL: Alert, comfortable, in no acute distress HEENT: Normocephalic, atraumatic, PERRLA, EOMI, moist mucous membranes NECK: Supple, trachea midline, no lymphadenopathy, no JVD CARDIOVASCULAR: Regular rate and rhythm, normal S1 and S2. No murmurs, rubs, or gallops RESPIRATORY: crackles at lizz right base ABDOMEN: Mildly tender throughout. Soft, nondistended, bowel sounds present, no masses or hepatosplenomegaly appreciated EXTREMITIES: No cyanosis or edema. Pulses 2+/4 in bilateral upper and lower extremities SKIN: [place], warm, dry NEUROLOGIC: Alert and oriented 3 to person, place and time. Cranial nerves 2-12 grossly intact. No focal deficits appreciated PSYCHIATRIC: Mood and affect appropriate LABORATORY DATA: Reviewed See below. IMAGING: CT abdomen/pelvis: 1. Small right-sided pleural effusion with right lower lobe atelectasis and consolidation. 2. Right nephrectomy with a small amount of fluid in the nephrectomy bed, as expected. MICROBIOLOGY: Please see below. ASSESSMENT/PLAN: 74-year-old male with PMH of Hypertension, right renal cell carcinoma s/p right radical nephrectomy on 11/02/19, Hyperlipidemia, BPH Osteoarthritis s/p joint replacements, dupuytren contracture releases presented to the ED with increasing pain in his torso and abdomen, worst over his right flank, and elevated blood pressure with systolic in the 190s at home. He reports a recent right radical nephrectomy was performed on 11/02/[address] Colon for a renal mass which was found to be renal cell carcinoma. The patient states he was discharged on 11/09/2019 from the hospital and had been taken Percocet one to 2 pills every 6 hours for the pain. He states he has been trying to cut back on the Percocet and since then his pain has become out of control. He also notes that he has had elevated blood pressures since his surgery and was started on 2 medications. He was also have cough , fever and chills at home. He was found to have right lower lobe pneumonia . He was admitted to the hospital for pneumonia found on CT imaging, blood pressure control and monitoring, and pain control HCAP right lower lobe recent hospitalization within past 1 month will change antibiotic to Zosyn. blood culture in progress, sputum progress. incentive spirometry adequate pain control needed. Sepsis due to pneumonia Zosyn Hypertensive urgency due to severe pain. received iv labetelol in ED Now resolved after pain well controlled. will continue with po labetelol. stop hydralazine bp soft this morning. Right robotic radical nephrectomy on 11/02/19 Right flank pain. Pain management with Percocet while inpatient. Continue Colace twice a day Acute kidney injury possibly due to loss of renal mass, sepsis, rule out urinary retention and bladder oulet obstruction. had nephrectomy His new baseline creatinine is probably going to be 1.5 to 1.7. Renal cell carcinoma. No evidence of complication seen on CT imaging. Follow up outpatient with urology scheduled BPH watch for urinary retention continue finasteride. bladder scan prn. Hyperlipidemia continue statin DVT prophylaxis: SC heparin, Danilo stockings VS,Fishbone, I+O VS, Fishbone, I+O Laboratory Tests 11/17/19 20:00 11/18/19 06:40 Vital Signs Date Time Temp Pulse Resp B/P (MAP) Pulse Ox O2 Delivery O2 Flow Rate FiO2 11/18/19 06:32 18 11/18/19 06:15 98.7 70 114/72 (86) 94 Room Air I&O- Last 24 Hours up to 6 AM 11/18/19 06:00 Intake Total 390 ml Output Total 100 ml Balance 290 ml ALEXANDRA WAGNER MD Nov 18, 2019 09:39
[2019-11-18 14:00] VITALS: BP 128/84
[2019-11-18 21:12] VITALS: BP 135/84
[2019-11-19] MEDS: BENZONATATE 100 MG CAP PO SCH ×4 (00:25→23:24)
[2019-11-19] MEDS: LABETALOL 100 MG TAB PO SCH ×4 (00:25→23:24)
[2019-11-19] MEDS: NS 1,000 ML IV SCH (03:51)
[2019-11-19] MEDS: PERCOCET 5MG/325MG TAB PO PRN ×2 (03:52→15:04)
[2019-11-19] MEDS: PIPERACILLIN/TAZOBACTAM SOD 3.375 GM in D5W MINI-BAG PLUS 50 ML IV SCH ×4 (03:52→21:09)
[2019-11-19 05:21] VITALS: BP 128/80
[2019-11-19] MEDS: HEPARIN SOD (PORCINE) 5000 UNITS/ML VIAL SC SCH ×3 (05:54→21:10)
[2019-11-19 07:22] LABS: BASO # 0.1 10^3/uL (0.0-0.2); BASO % 0.4 % (0.0-1.0); EOS # 0.7 10^3/uL (0.0-0.5); EOS % 6.3 % (0.0-3.0); HEMATOCRIT 35.9 % (42.0-52.0); HEMOGLOBIN 11.6 g/dl (13.5-17.5); LYMPH # 1.5 10^3/uL (1.5-5.0); LYMPH % 12.8 % (24.0-44.0); MEAN CORPUSCULAR HEMOGLOBIN 31.8 pg (27.0-33.0); MEAN CORPUSCULAR HGB CONC 32.3 g/dl (32.0-36.5); MEAN CORPUSCULAR VOLUME 98.4 fl (80.0-96.0); MONO % 8.9 % (0.0-5.0); NEUTROPHILS # 8.2 10^3/uL (1.5-8.5); NEUTROPHILS % 71.2 % (36.0-66.0); PLATELET COUNT, AUTOMATED 338 10^3/uL (150-450); RED BLOOD COUNT 3.65 10^6/uL (4.30-6.10); WHITE BLOOD COUNT 11.6 10^3/uL (4.0-10.0)
[2019-11-19 07:44] LABS: CALCIUM LEVEL 7.9 MG/DL (8.8-10.2); CREATININE FOR GFR 1.65 MG/DL (0.70-1.30); GLOMERULAR FILTRATION RATE 43.6 (>42); POTASSIUM SERUM 4.3 MEQ/L (3.5-5.1)
[2019-11-19] MEDS: DOCUSATE SODIUM 100 MG CAP PO SCH ×2 (08:25→20:37)
[2019-11-19] MEDS: **hydrALAZINE HCL** 25 MG TAB PO SCH ×3 (08:26→21:10)
--- NOTE | 2019-11-19 10:52 | IPNPDOC ---
Subjective Date Seen The patient was seen on 11/19/19. Subjective Chief Complaint/HPI Mr Harrington is a 74 year old male admitted with diagnoses of HCAP, Sepsis, Hypertensive urgency. He is doing better today. Pain over the R side is well managed. He had a big BM this morning which relieved some of the gassy abdominal discomfort he had. He has managed to urinate several time during the night. General: Reports: Normal Appetite; Denies: Chills, Night Sweats, Fatigue, Malaise Constitutional: Denies: Chills, Fever, Malaise, Night Sweats, Weakness Eyes: Denies: Pain ENT: Denies: Head Aches Skin: Denies: Rash Pulmonary: Denies: Dyspnea, Cough Cardiovascular: Denies: Chest Pain, Palpitations, Paroxysmal Noc. Dyspnea, Edema, Lt Headedness Gastrointestinal: Reports: Abdominal Pain; Denies: Nausea, Vomiting, Diarrhea Genitourinary: Denies: Dysuria Musculoskeletal: Denies: Neck Pain, Back Pain, Joint Pain, Muscle Pain, Spasms Neurological: Denies: Change in speech, Confusion Psych: Reports: Mood Normal Objective Physical Examination General Exam: Positive: Alert, Cooperative, No Acute Distress Eye Exam: Positive: PERRLA, Conjunctiva & lids normal, EOMI ENT Exam: Positive: Atraumatic, Mucous membr. moist/pink, Pharynx Normal, Tongue Midline Neck Exam: Positive: Supple; Negative: thyromegaly Chest Exam: Positive: Clear to auscultation, Normal air movement Heart Exam: Positive: Rate Normal, Normal S1, Normal S2; Negative: Gallops, Murmurs, Rubs Abdomen Exam: Positive: Normal bowel sounds, Tenderness (TTP RUQ ); Negative: Soft (guarding ) Extremity Exam: Negative: Clubbing, Cyanosis, Edema Skin Exam: Positive: Nl turgor and temperature Neuro Exam: Positive: Normal Speech, Cranial Nerves 3-12 NL Psych Exam: Positive: Mood NL, Oriented x 3 Assessment /Plan Assessment 74-year-old male with PMH of Hypertension, right renal cell carcinoma s/p right radical nephrectomy on 11/02/19, Hyperlipidemia, BPH Osteoarthritis s/p joint replacements, Dupuytren's contracture releases presented to the ED with increasing pain in his torso and abdomen, worst over his right flank, and elevated blood pressure with systolic in the 190s at home. He reports a recent right radical nephrectomy was performed on 11/02/[address] Colon for a renal mass which was found to be renal cell carcinoma. The patient states he was discharged on 11/09/2019 from the hospital and had been taken Percocet one to 2 pills every 6 hours for the pain. He states he has been trying to cut back on the Percocet and since then his pain has become out of control. He also notes that he has had elevated blood pressures since his surgery and was started on 2 medications. He was also have cough , fever and chills at home. He was found to have right lower lobe pneumonia . He was admitted to the hospital for pneumonia found on CT imaging, blood pressure control and monitoring, and pain control HCAP right lower lobe blood culture in process. Sputum culture: contaminated. Pt responding well to Zosyn, continue. encouraged incentive spirometry adequate pain control achieved Sepsis resolved due to pneumonia Continue Zosyn Hypertensive urgency due to severe pain. received IV Labetalol in ED Now resolved after pain well controlled. will continue with PO Labetelol Hydralazine stopped due to low BP Right robotic radical nephrectomy on 11/02/19 Right flank pain. Pain management with Percocet while inpatient Continue Colace twice a day. MOM prn Acute kidney injury possibly due to loss of renal mass, sepsis, rule out urinary retention and bladder outlet obstruction. had nephrectomy His new baseline creatinine is probably going to be 1.5 to 1.7. Renal cell carcinoma. No evidence of complication seen on CT imaging. Follow up outpatient with urology scheduled BPH reported good urine output overnight; continue Finasteride bladder scan prn. Hyperlipidemia continue statin Plan/VTE VTE Prophylaxis Ordered?: Yes (Heparin SC) VS, I&O, 24H, Fishbone Vital Signs/I&O Vital Signs Date Time Temp Pulse Resp B/P (MAP) Pulse Ox O2 Delivery O2 Flow Rate FiO2 11/19/19 08:26 138/74 11/19/19 08:25 82 11/19/19 05:21 98.3 17 96 Room Air I&O- Last 24 Hours up to 6 AM 11/19/19 06:00 Intake Total 1920 ml Output Total 1225 ml Balance 695 ml Laboratory Data 24H LABS Laboratory Tests 2 11/19/19 07:12: Immature Granulocyte % (Auto) 0.4, Neutrophils (%) (Auto) 71.2H, Lymphocytes (%) (Auto) 12.8L, Monocytes (%) (Auto) 8.9H, Eosinophils (%) (Auto) 6.3H, Basophils (%) (Auto) 0.4, Neutrophils # (Auto) 8.2, Lymphocytes # (Auto) 1.5, Monocytes # (Auto) 1.0H, Eosinophils # (Auto) 0.7H, Basophils # (Auto) 0.1, Nucleated Red Blood Cells % (auto) 0.0, Anion Gap 8, Glomerular Filtration Rate 43.6, Calcium Level 7.9L CBC/BMP Laboratory Tests 11/19/19 07:12 Microbiology Microbiology 11/18/19 Blood Culture - Preliminary, Resulted No growth after 24 hours . All specim... 11/18/19 Blood Culture - Preliminary, Resulted No growth after 24 hours . All specim... 11/17/19 Gram Stain - Final, Complete 11/17/19 Sputum Culture - Final, Complete LIANA YUN PA-C Nov 19, 2019 10:52
[2019-11-19 14:00] VITALS: BP 134/83
[2019-11-19] MEDS: FINASTERIDE 5 MG TAB PO SCH (21:08)
[2019-11-19] MEDS: VITAMIN D 1,000 INTERNATIONAL UNITS TABLET PO SCH (21:09)
[2019-11-19] MEDS: SIMVASTATIN 40 MG TAB PO SCH (21:09)
[2019-11-19] MEDS: ACETAMINOPHEN 650MG ER TAB (TYLENOL ARTHRITIS) PO PRN (21:09)
[2019-11-19] MEDS: MULTIVITAMINS/MINERALS THERAP 1 TAB PO SCH (21:09)
[2019-11-19 22:00] VITALS: BP 128/81
[2019-11-19 23:18] VITALS: BP 144/84
[2019-11-20] MEDS: PIPERACILLIN/TAZOBACTAM SOD 3.375 GM in D5W MINI-BAG PLUS 50 ML IV SCH ×4 (04:16→22:02)
[2019-11-20] MEDS: **hydrALAZINE HCL** 25 MG TAB PO SCH ×3 (05:25→22:02)
[2019-11-20] MEDS: HEPARIN SOD (PORCINE) 5000 UNITS/ML VIAL SC SCH ×3 (05:26→22:02)
[2019-11-20] MEDS: PERCOCET 5MG/325MG TAB PO PRN ×2 (05:26→20:07)
[2019-11-20 06:00] VITALS: BP 163/85
[2019-11-20 06:29] LABS: BASO # 0.1 10^3/uL (0.0-0.2); BASO % 0.6 % (0.0-1.0); EOS # 0.9 10^3/uL (0.0-0.5); HEMATOCRIT 36.4 % (42.0-52.0); LYMPH # 1.5 10^3/uL (1.5-5.0); LYMPH % 15.9 % (24.0-44.0); MEAN CORPUSCULAR HEMOGLOBIN 31.8 pg (27.0-33.0); MEAN CORPUSCULAR VOLUME 96.6 fl (80.0-96.0); MONO % 10.5 % (0.0-5.0); NEUTROPHILS % 63.6 % (36.0-66.0); PLATELET COUNT, AUTOMATED 351 10^3/uL (150-450); RED BLOOD COUNT 3.77 10^6/uL (4.30-6.10); WHITE BLOOD COUNT 9.4 10^3/uL (4.0-10.0)
[2019-11-20 06:55] LABS: CALCIUM LEVEL 8.2 MG/DL (8.8-10.2); CREATININE FOR GFR 1.56 MG/DL (0.70-1.30); GLOMERULAR FILTRATION RATE 46.5 (>42); POTASSIUM SERUM 3.8 MEQ/L (3.5-5.1)
[2019-11-20] MEDS: DOCUSATE SODIUM 100 MG CAP PO SCH ×2 (08:20→20:06)
[2019-11-20] MEDS: BENZONATATE 100 MG CAP PO SCH ×3 (08:20→23:14)
[2019-11-20] MEDS: LABETALOL 100 MG TAB PO SCH ×3 (08:21→23:15)
--- NOTE | 2019-11-20 11:30 | IPNPDOC ---
Text Note Date of Service The patient was seen on 11/20/19. NOTE SUBJECTIVE: continues to have right flank discomfort so has an abdominal binder on which he says helps when he coughs. He is more motivated this morning, seen walking in the [address]. coughing is still painfull however he is working with the acapella and the incentive spirometer. No fever or chills, no chest pain ro sob. PHYSICAL EXAMINATION: VITAL SIGNS: See below GENERAL: Alert, comfortable, in no acute distress HEENT: Normocephalic, atraumatic, PERRLA, EOMI, moist mucous membranes NECK: Supple, trachea midline, no lymphadenopathy, no JVD CARDIOVASCULAR: Regular rate and rhythm, normal S1 and S2. No murmurs, rubs, or gallops RESPIRATORY: crackles at the right base other [place] clear to auscultation. ABDOMEN: Mildly tender throughout. Soft, nondistended, bowel sounds present, no masses or hepatosplenomegaly appreciated EXTREMITIES: No cyanosis or edema. Pulses 2+/4 in bilateral upper and lower extremities SKIN: [place], warm, dry NEUROLOGIC: Alert and oriented 3 to person, place and time. Cranial nerves 2-12 grossly intact. No focal deficits appreciated PSYCHIATRIC: Mood and affect appropriate LABORATORY DATA: Reviewed See below. IMAGING: CT abdomen/pelvis: 1. Small right-sided pleural effusion with right lower lobe atelectasis and consolidation. 2. Right nephrectomy with a small amount of fluid in the nephrectomy bed, as expected. MICROBIOLOGY: Please see below. ASSESSMENT/PLAN: 74-year-old male with PMH of Hypertension, right renal cell carcinoma s/p right radical nephrectomy on 11/02/19, Hyperlipidemia, BPH Osteoarthritis s/p joint replacements, dupuytren contracture releases presented to the ED with increasing pain in his torso and abdomen, worst over his right flank, and elevated blood pressure with systolic in the 190s at home. He reports a recent right radical nephrectomy was performed on 11/02/[address] Colon for a renal mass which was found to be renal cell carcinoma. The patient states he was discharged on 11/09/2019 from the hospital and had been taken Percocet one to 2 pills every 6 hours for the pain. He states he has been trying to cut back on the Percocet and since then his pain has become out of control. He also notes that he has had elevated blood pressures since his surgery and was started on 2 medications. He was also have cough , fever and chills at home. He was found to have right lower lobe pneumonia . He was admitted to the hospital for pneumonia found on CT imaging, blood pressure control and monitoring, and pain control HCAP right lower lobe recent hospitalization within past 1 month will change antibiotic to Zosyn. blood culture in progress, sputum progress. incentive spirometry adequate pain control needed. Sepsis due to pneumonia Zosyn Hypertensive urgency due to severe pain. received iv labetelol in ED Now resolved after pain well controlled. continue curent meds. Right robotic radical nephrectomy on 11/02/19 Right flank pain. Pain management with Percocet while inpatient. Continue Colace twice a day Acute kidney injury possibly due to loss of renal mass, sepsis, rule out urinary retention and bladder oulet obstruction. had nephrectomy His new baseline creatinine is probably going to be 1.5 to 1.7. Renal cell carcinoma. No evidence of complication seen on CT imaging. Follow up outpatient with urology scheduled BPH watch for urinary retention continue finasteride. bladder scan prn. Hyperlipidemia continue statin DVT prophylaxis: SC heparin, Danilo stockings VS,Fishbone, I+O VS, Fishbone, I+O Laboratory Tests 11/20/19 06:10 Vital Signs Date Time Temp Pulse Resp B/P (MAP) Pulse Ox O2 Delivery O2 Flow Rate FiO2 11/20/19 08:21 61 163/85 11/20/19 06:00 98.2 20 98 Room Air I&O- Last 24 Hours up to 6 AM 11/20/19 06:00 Intake Total 1420 ml Output Total 1250 ml Balance 170 ml ALEXANDRA WAGNER MD Nov 20, 2019 11:30
[2019-11-20 13:49] VITALS: BP 146/96
[2019-11-20 16:00] VITALS: BP 147/96
[2019-11-20] MEDS: MULTIVITAMINS/MINERALS THERAP 1 TAB PO SCH (20:06)
[2019-11-20] MEDS: FINASTERIDE 5 MG TAB PO SCH (20:06)
[2019-11-20] MEDS: SIMVASTATIN 40 MG TAB PO SCH (20:06)
[2019-11-20] MEDS: VITAMIN D 1,000 INTERNATIONAL UNITS TABLET PO SCH (20:06)
[2019-11-20 22:00] VITALS: BP 146/83
[2019-11-21] MEDS: HEPARIN SOD (PORCINE) 5000 UNITS/ML VIAL SC SCH ×3 (04:54→22:10)
[2019-11-21] MEDS: PIPERACILLIN/TAZOBACTAM SOD 3.375 GM in D5W MINI-BAG PLUS 50 ML IV SCH ×4 (04:54→22:09)
[2019-11-21] MEDS: **hydrALAZINE HCL** 25 MG TAB PO SCH (04:54)
[2019-11-21 06:00] VITALS: BP 142/89
[2019-11-21 06:38] LABS: BASO # 0.1 10^3/uL (0.0-0.2); BASO % 0.6 % (0.0-1.0); EOS # 0.9 10^3/uL (0.0-0.5); HEMATOCRIT 40.1 % (42.0-52.0); HEMOGLOBIN 13.1 g/dl (13.5-17.5); LYMPH # 1.3 10^3/uL (1.5-5.0); LYMPH % 13.4 % (24.0-44.0); MEAN CORPUSCULAR HEMOGLOBIN 31.7 pg (27.0-33.0); MEAN CORPUSCULAR HGB CONC 32.7 g/dl (32.0-36.5); MEAN CORPUSCULAR VOLUME 97.1 fl (80.0-96.0); MONO # 0.9 10^3/uL (0.0-0.8); MONO % 9.1 % (0.0-5.0); NEUTROPHILS # 6.7 10^3/uL (1.5-8.5); NEUTROPHILS % 67.4 % (36.0-66.0); PLATELET COUNT, AUTOMATED 412 10^3/uL (150-450); RED BLOOD COUNT 4.13 10^6/uL (4.30-6.10); WHITE BLOOD COUNT 9.9 10^3/uL (4.0-10.0)
[2019-11-21 07:10] LABS: CALCIUM LEVEL 8.9 MG/DL (8.8-10.2); CREATININE FOR GFR 1.66 MG/DL (0.70-1.30); GLOMERULAR FILTRATION RATE 43.3 (>42); POTASSIUM SERUM 3.7 MEQ/L (3.5-5.1)
[2019-11-21] MEDS: ACETAMINOPHEN 650MG ER TAB (TYLENOL ARTHRITIS) PO PRN (08:27)
[2019-11-21] MEDS: BENZONATATE 100 MG CAP PO SCH ×3 (08:27→23:27)
[2019-11-21] MEDS: LABETALOL 100 MG TAB PO SCH ×3 (08:28→23:27)
[2019-11-21] MEDS: DOCUSATE SODIUM 100 MG CAP PO SCH ×2 (08:28→19:08)
[2019-11-21] MEDS: amLODIPine 5 MG TAB PO SCH ×2 (10:55→20:53)
[2019-11-21] MEDS: PERCOCET 5MG/325MG TAB PO PRN (11:22)
--- NOTE | 2019-11-21 11:27 | IPNPDOC ---
Text Note Date of Service The patient was seen on 11/21/19. NOTE SUBJECTIVE: Does not feel as good as yesterday, has a headache, was feeling very hot and flushed this morning. Has some gas and lots of eructations. He is having dull aching pain in the lower abdomen and right flank. No fever or chills, no chest pain , no cough, has some nasal congestion. No SOB. PHYSICAL EXAMINATION: VITAL SIGNS: See below GENERAL: Alert, comfortable, in no acute distress HEENT: Normocephalic, atraumatic, PERRLA, EOMI, moist mucous membranes NECK: Supple, trachea midline, no lymphadenopathy, no JVD CARDIOVASCULAR: Regular rate and rhythm, normal S1 and S2. No murmurs, rubs, or gallops RESPIRATORY: crackles at the right base other greenberg clear to auscultation. ABDOMEN: Mildly tender throughout. Soft, nondistended, bowel sounds present, no masses or hepatosplenomegaly appreciated EXTREMITIES: No cyanosis or edema. Pulses 2+/4 in bilateral upper and lower extremities SKIN: [place], warm, dry NEUROLOGIC: Alert and oriented 3 to person, place and time. Cranial nerves 2-12 grossly intact. No focal deficits appreciated PSYCHIATRIC: Mood and affect appropriate LABORATORY DATA: Reviewed See below. IMAGING: CT abdomen/pelvis: 1. Small right-sided pleural effusion with right lower lobe atelectasis and consolidation. 2. Right nephrectomy with a small amount of fluid in the nephrectomy bed, as expected. MICROBIOLOGY: Please see below. ASSESSMENT/PLAN: 74-year-old male with PMH of Hypertension, right renal cell carcinoma s/p right radical nephrectomy on 11/02/19, Hyperlipidemia, BPH Osteoarthritis s/p joint replacements, dupuytren contracture releases presented to the ED with increasing pain in his torso and abdomen, worst over his right fl ank, and elevated blood pressure with systolic in the 190s at home. He reports a recent right radical nephrectomy was performed on 11/02/[address] Colon for a renal mass which was found to be renal cell carcinoma. The patient states he was discharged on 11/09/2019 from the hospital and had been taken Percocet one to 2 pills every 6 hours for the pain. He states he has been trying to cut back on the Percocet and since then his pain has become out of control. He also notes that he has had elevated blood pressures since his surgery and was started on 2 medications. He was also have cough , fever and chills at home. He was found to have right lower lobe pneumonia . He was admitted to the hospital for pneumonia found on CT imaging, blood pressure control and monitoring, and pain control HCAP right lower lobe recent hospitalization within past 1 month will change antibiotic to Zosyn. blood culture in progress, sputum progress. incentive spirometry adequate pain control needed. Sepsis due to pneumonia Zosyn Hypertensive urgency due to severe pain. received iv labetelol in ED Now resolved after pain well controlled. will give labetelol and amlodipine. Right robotic radical nephrectomy on 11/02/19 Right flank pain. Pain management with Percocet while inpatient. Continue Colace twice a day Acute kidney injury possibly due to loss of renal mass, sepsis, rule out urinary retention and bladder oulet obstruction. had nephrectomy His new baseline creatinine is probably going to be 1.5 to 1.7. Renal cell carcinoma. No evidence of complication seen on CT imaging. Follow up outpatient with urology scheduled BPH watch for urinary retention continue finasteride. bladder scan prn. Hyperlipidemia continue statin DVT prophylaxis: SC heparin, Danilo stockings VS,Fishbone, I+O VS, Fishbone, I+O Laboratory Tests 11/21/19 06:12 Vital Signs Date Time Temp Pulse Resp B/P (MAP) Pulse Ox O2 Delivery O2 Flow Rate FiO2 11/21/19 10:55 70 130/60 11/21/19 06:00 99.2 18 95 Room Air I&O- Last 24 Hours up to 6 AM 11/21/19 06:00 Intake Total 2120 ml Output Total 2450 ml Balance -330 ml ALEXANDRA WAGNER MD Nov 21, 2019 11:27
[2019-11-21 14:00] VITALS: BP 135/87
[2019-11-21] MEDS: VITAMIN D 1,000 INTERNATIONAL UNITS TABLET PO SCH (20:52)
[2019-11-21] MEDS: FINASTERIDE 5 MG TAB PO SCH (20:52)
[2019-11-21] MEDS: ACETAMINOPHEN 500 MG TAB PO SCH (20:53)
[2019-11-21] MEDS: MULTIVITAMINS/MINERALS THERAP 1 TAB PO SCH (20:53)
[2019-11-21] MEDS: SIMVASTATIN 40 MG TAB PO SCH (20:53)
[2019-11-21 22:00] VITALS: BP 137/88
[2019-11-22 00:07] LABS: BODY FLUID CULTURE Not indicated. (.); LEGIONELLA ANTIGEN URINE Negative (Negative); ORGANISM ID Not indicated. (.); SPECIMEN SOURCE Urine (.); URINE STREP PNEUMONIAE ANTIGEN Negative (Negative)
[2019-11-22] MEDS: PIPERACILLIN/TAZOBACTAM SOD 3.375 GM in D5W MINI-BAG PLUS 50 ML IV SCH ×2 (04:34→09:55)
[2019-11-22] MEDS: HEPARIN SOD (PORCINE) 5000 UNITS/ML VIAL SC SCH ×3 (05:40→23:34)
[2019-11-22 06:00] VITALS: BP 137/87
[2019-11-22 08:13] LABS: BASO # 0.1 10^3/uL (0.0-0.2); BASO % 0.7 % (0.0-1.0); EOS # 1.1 10^3/uL (0.0-0.5); EOS % 12.3 % (0.0-3.0); HEMATOCRIT 41.1 % (42.0-52.0); HEMOGLOBIN 13.2 g/dl (13.5-17.5); LYMPH # 1.4 10^3/uL (1.5-5.0); MEAN CORPUSCULAR HEMOGLOBIN 31.1 pg (27.0-33.0); MEAN CORPUSCULAR HGB CONC 32.1 g/dl (32.0-36.5); MEAN CORPUSCULAR VOLUME 96.7 fl (80.0-96.0); MONO # 0.8 10^3/uL (0.0-0.8); MONO % 9.6 % (0.0-5.0); NEUTROPHILS # 5.3 10^3/uL (1.5-8.5); NEUTROPHILS % 60.8 % (36.0-66.0); PLATELET COUNT, AUTOMATED 432 10^3/uL (150-450); RED BLOOD COUNT 4.25 10^6/uL (4.30-6.10); WHITE BLOOD COUNT 8.7 10^3/uL (4.0-10.0)
[2019-11-22] MEDS: BENZONATATE 100 MG CAP PO SCH ×3 (08:32→23:34)
[2019-11-22] MEDS: DOCUSATE SODIUM 100 MG CAP PO SCH ×2 (08:32→20:32)
[2019-11-22] MEDS: ACETAMINOPHEN 500 MG TAB PO SCH ×2 (08:33→20:32)
[2019-11-22] MEDS: LABETALOL 100 MG TAB PO SCH ×3 (08:34→23:38)
[2019-11-22] MEDS: amLODIPine 5 MG TAB PO SCH ×2 (08:34→20:33)
[2019-11-22 08:40] LABS: CALCIUM LEVEL 8.9 MG/DL (8.8-10.2); CREATININE FOR GFR 1.8 MG/DL (0.70-1.30); GLOMERULAR FILTRATION RATE 39.5 (>42); POTASSIUM SERUM 3.7 MEQ/L (3.5-5.1)
--- NOTE | 2019-11-22 10:52 | IPNPDOC ---
Text Note Date of Service The patient was seen on 11/22/19. NOTE SUBJECTIVE: Feels a little better than yesterday, was able to eat dinner last night and breakfast this morning. Says having a lot of abdominal gas. Has not been able to get out of bed much yesterday but says will try more today. Says he has frequent small amount of urine output which is usual for him at home too. His creatinine is on the rise here. will get bladder scan may be having some urinary retention. PHYSICAL EXAMINATION: VITAL SIGNS: See below GENERAL: Alert, comfortable, in no acute distress HEENT: Normocephalic, atraumatic, PERRLA, EOMI, moist mucous membranes NECK: Supple, trachea midline, no lymphadenopathy, no JVD CARDIOVASCULAR: Regular rate and rhythm, normal S1 and S2. No murmurs, rubs, or gallops RESPIRATORY: crackles at the right base other greenberg clear to auscultation. ABDOMEN: Mildly tender throughout. Soft, non distended, bowel sounds present, no masses or hepatosplenomegaly appreciated EXTREMITIES: No cyanosis or edema. Pulses 2+/4 in bilateral upper and lower extremities SKIN: [place], warm, dry NEUROLOGIC: Alert and oriented 3 to person, place and time. Cranial nerves 2-12 grossly intact. No focal deficits appreciated PSYCHIATRIC: Mood and affect appropriate LABORATORY DATA: Reviewed See below. IMAGING: CT abdomen/pelvis: 1. Small right-sided pleural effusion with right lower lobe atelectasis and consolidation. 2. Right nephrectomy with a small amount of fluid in the nephrectomy bed, as expected. MICROBIOLOGY: Please see below. ASSESSMENT/PLAN: 74-year-old male with PMH of Hypertension, right renal cell carcinoma s/p right radical nephrectomy on 11/02/19, Hyperlipidemia, BPH Osteoarthritis s/p joint replacements, dupuytren contracture releases presented to the ED with increasing pain in his torso and abdomen, worst over his right flank, and elevated blood pressure with systolic in the 190s at home. He reports a recent right radical nephrectomy was performed on 11/02/[address] Colon for a renal mass which was found to be renal cell carcinoma. The patient states he was discharged on 11/09/2019 from the hospital and had been taken Percocet one to 2 pills every 6 hours for the pain. He states he has been trying to cut back on the Percocet and since then his pain has become out of control. He also notes that he has had elevated blood pressures since his surgery and was started on 2 medications. He was also have cough , fever and chills at home. He was found to have right lower lobe pneumonia . He was admitted to the hospital for pneumonia found on CT imaging, blood pressure control and monitoring, and pain control HCAP right lower lobe recent hospitalization within past 1 month blood culture in progress, sputum progress. incentive spirometry Recieved 4 days of Zosyn will change to cefdinir to finish total 7 days. Sepsis resolved due to pneumonia Hypertensive urgency due to severe pain. received iv labetelol in ED Now resolved after pain well controlled. continue labetelol and amlodipine. Right robotic radical nephrectomy on 11/02/19 for renal cell carcinoma Right flank pain. Pain management with Percocet while inpatient. Continue Colace twice a day Acute kidney injury possibly due to loss of renal mass, sepsis, rule out urinary retention and bladder outlet obstruction. had nephrectomy His new baseline creatinine is probably going to be 1.5 to 1.7. Will get a bladder scan Renal cell carcinoma. No evidence of complication seen on CT imaging. Follow up outpatient with urology scheduled BPH watch for urinary retention continue finasteride. bladder scan prn. Hyperlipidemia continue statin DVT prophylaxis: SC heparin, Danilo stockings Dispo: Home in 24 hours. VS,Fishbone, I+O VS, Fishbone, I+O Laboratory Tests 11/22/19 07:07 Vital Signs Date Time Temp Pulse Resp B/P (MAP) Pulse Ox O2 Delivery O2 Flow Rate FiO2 11/22/19 08:34 92 145/87 11/22/19 06:00 98.4 18 96 Room Air I&O- Last 24 Hours up to 6 AM 11/22/19 05:59 Intake Total 1830 ml Output Total 2750 ml Balance -920 ml ALEXANDRA WAGNER MD Nov 22, 2019 10:52
[2019-11-22 13:30] VITALS: BP 154/94
[2019-11-22] MEDS: CEFDINIR 300 MG CAP (OMNICEF) PO SCH (20:31)
[2019-11-22] MEDS: SIMVASTATIN 40 MG TAB PO SCH (20:31)
[2019-11-22] MEDS: VITAMIN D 1,000 INTERNATIONAL UNITS TABLET PO SCH (20:32)
[2019-11-22] MEDS: FINASTERIDE 5 MG TAB PO SCH (20:33)
[2019-11-22] MEDS: MULTIVITAMINS/MINERALS THERAP 1 TAB PO SCH (20:33)
[2019-11-22 21:55] VITALS: BP 150/86
[2019-11-23] MEDS: HEPARIN SOD (PORCINE) 5000 UNITS/ML VIAL SC SCH (06:06)
[2019-11-23 06:09] VITALS: BP_SYST 135; BP_SYST 160; BP_DIAS 70; BP_DIAS 77
[2019-11-23 06:55] LABS: BASO # 0.1 10^3/uL (0.0-0.2); BASO % 0.6 % (0.0-1.0); EOS # 1.2 10^3/uL (0.0-0.5); EOS % 12.4 % (0.0-3.0); HEMATOCRIT 40.3 % (42.0-52.0); HEMOGLOBIN 13.1 g/dl (13.5-17.5); LYMPH # 1.5 10^3/uL (1.5-5.0); MEAN CORPUSCULAR HEMOGLOBIN 31.4 pg (27.0-33.0); MEAN CORPUSCULAR HGB CONC 32.5 g/dl (32.0-36.5); MEAN CORPUSCULAR VOLUME 96.6 fl (80.0-96.0); MONO # 0.9 10^3/uL (0.0-0.8); NEUTROPHILS # 5.9 10^3/uL (1.5-8.5); NEUTROPHILS % 61.3 % (36.0-66.0); PLATELET COUNT, AUTOMATED 398 10^3/uL (150-450); RED BLOOD COUNT 4.17 10^6/uL (4.30-6.10); WHITE BLOOD COUNT 9.6 10^3/uL (4.0-10.0)
[2019-11-23 07:19] LABS: CREATININE FOR GFR 1.56 MG/DL (0.70-1.30); GLOMERULAR FILTRATION RATE 46.5 (>42); POTASSIUM SERUM 3.9 MEQ/L (3.5-5.1)
[2019-11-23] MEDS: CEFDINIR 300 MG CAP (OMNICEF) PO SCH (08:46)
[2019-11-23] MEDS: BENZONATATE 100 MG CAP PO SCH (08:46)
[2019-11-23] MEDS: DOCUSATE SODIUM 100 MG CAP PO SCH (08:46)
[2019-11-23 08:47] VITALS: BP 135/77
[2019-11-23] MEDS: amLODIPine 5 MG TAB PO SCH (08:47)
[2019-11-23] MEDS: ACETAMINOPHEN 500 MG TAB PO SCH (08:47)
[2019-11-23] MEDS: LABETALOL 100 MG TAB PO SCH (08:47)
[2019-11-23] MEDS ORDERED: ACET-683 PO (10:22)
[2019-11-23] MEDS ORDERED: CEFD300CAP PO (10:22)
[2019-11-23] MEDS ORDERED: PERCOCET PO (10:22)
[2019-11-23] MEDS ORDERED: BENZ-18 PO (10:22)
[2019-11-23] MEDS ORDERED: AMLO5TAB6 PO (10:22)
--- NOTE | 2019-11-23 10:43 | DS.PDOC ---
Discharge Summary General Date of Admission Nov 17, 2019 at 22:57 Date of Discharge 11/23/2019 Discharge Summary PROCEDURES PERFORMED DURING STAY: [None]. ADMITTING DIAGNOSES: 1. Sepsis secondary to CAP 2. Chronic Hypertension 3. Right Flank Pain 4. Mild Renal Insufficiency 5. Renal Cell Carcinoma DISCHARGE DIAGNOSES: 1. Sepsis secondary to HAP 2. Hospital Acquired Pneumonia 3. Hypertensive Urgency 4. Right Flank Pain 5. GLADYS 6. Renal Cell Carcinoma 7. BPH 8. Hyperlipidemia COMPLICATIONS/CHIEF COMPLAINT: Pneumonia. HISTORY OF PRESENT ILLNESS: "Sarwat Harrington is a 74 year old man who presented to the ED with increasing pain in his torso and abdomen, worst over his right flank, and elevated blood pressure with systolic in the 190s at home. He reports a recent right radical nephrectomy performed on 11/02/[address] Colon for a renal mass which was found to be renal cell carcinoma. The patient states he was discharged on 11/09/2019 from the hospital and had been taken Percocet one to 2 pills every 6 hours for the pain. He states he has been trying to cut back on the Percocet and since then his pain has become out of control. He also notes that he has had elevated blood pressures since his surgery and was started on 2 medications. During his admission post operatively to help keep his blood pressure under control. He states prior to his surgery. He does note that he has a history of hypertension in the past but has been off medication for at least 6 years until after his surgery last month. On review of systems, the patient notes that he has had chills recently and has had a hard time keeping warm. He also notes that he has a cough in the mornings, which brings up clear mucus or sputum. He also notes a mild headache and intermittent dizziness which he thinks is related to when his blood pressure is elevated." HOSPITAL COURSE: Mr. Harrington was admitted to the hospital for treatment of sepsis secondary to RLL pneumonia found incidentally on CT, control of his BP and severe abdominal pain. Hypertensive urgency likely secondary to severe right flank pain; IV Labetalol given in the ED. Labetalol PO continued inpatient, Hydralazine held as BP remained soft. Eventually started on Amlodipine which he tolerated well. Right flank pain control was achieved with Percocet which further helped resolve the hypertensive urgency. GLADYS thought to be secondary to loss of renal mass (had nephrectomy) & sepsis; baseline Cr will likely remain between 1.5 to 1.7 following nephrectomy. BPH - managed with continued Finasteride. Blood cultures were negative after 5 days and sputum cultures were contaminated. Pt was treated with Zosyn x 4 days, then switched to Cefdinir PO inpatient; he is discharged with Cefdinir PO to complete 7 days of antibiotic treatment. DISCHARGE MEDICATIONS: Please see below. ALLERGIES: Please see below. PHYSICAL EXAMINATION ON DISCHARGE: VITAL SIGNS: Please see below. General Exam: Positive: Alert, Cooperative, No Acute Distress Eye Exam: Positive: PERRLA, Conjunctiva & lids normal, EOMI ENT Exam: Positive: Atraumatic, Mucous membr. moist/pink, Pharynx Normal, Tongue Midline Neck Exam: Positive: Supple; Negative: thyromegaly Chest Exam: Positive: Clear to auscultation, Normal air movement Heart Exam: Positive: Rate Normal, Normal S1, Normal S2; Negative: Gallops, Murmurs, Rubs Abdomen Exam: Positive: Normal bowel sounds, Tenderness (slight TTP RUQ ); Negative: Soft (mild guarding ) Extremity Exam: Negative: Clubbing, Cyanosis, Edema Skin Exam: Positive: Nl turgor and temperature Neuro Exam: Positive: Normal Speech, Cranial Nerves 3-12 NL Psych Exam: Positive: Mood NL, Oriented x 3 LABORATORY DATA: Please see below. IMAGING: CT Abdomen/pelvis with contrast Impression: "1. Small right-sided pleural effusion with right lower lobe atelectasis and consolidation. 2. Right nephrectomy with a small amount of fluid in the nephrectomy bed, as expected. ACTIVITY: As tolerated DIET: Regular diet DISCHARGE PLAN: See below DISPOSITION: Discharge home DISCHARGE INSTRUCTIONS: 1. Complete all antibiotics as prescribed 2. Please see handout for further d/c instructions 3. Discuss Prevnar 13 with PCP if not already vaccinated ITEMS TO FOLLOWUP ON ON OUTPATIENT: 1. Dr. La RE: continuing Amlodipine vs resuming Hydralazine 2. Pneumonia resolution: CXR in 4-6 weeks. DISCHARGE CONDITION: [Stable]. TIME SPENT ON DISCHARGE: 33 minutes Vital Signs/I&Os Vital Signs Date Time Temp Pulse Resp B/P (MAP) Pulse Ox O2 Delivery O2 Flow Rate FiO2 11/23/19 08:47 68 135/77 11/23/19 06:09 98.4 16 96 Room Air I&O- Last 24 Hours up to 6 AM 11/23/19 06:00 Intake Total 2060 ml Output Total 600 ml Balance 1460 ml Laboratory Data Labs 24H Laboratory Tests 2 11/23/19 05:58: Immature Granulocyte % (Auto) 0.7, Neutrophils (%) (Auto) 61.3, Lymphocytes (%) (Auto) 16.0L, Monocytes (%) (Auto) 9.0H, Eosinophils (%) (Auto) 12.4H, Basophils (%) (Auto) 0.6, Neutrophils # (Auto) 5.9, Lymphocytes # (Auto) 1.5, Monocytes # (Auto) 0.9H, Eosinophils # (Auto) 1.2H, Basophils # (Auto) 0.1, Nucleated Red Blood Cells % (auto) 0.0, Anion Gap 10, Glomerular Filtration Rate 46.5, Calcium Level 9.0 CBC/BMP Laboratory Tests 11/23/19 05:58 Microbiology Microbiology 11/18/19 Blood Culture - Final, Complete NO GROWTH AFTER 5 DAYS 11/18/19 Blood Culture - Final, Complete NO GROWTH AFTER 5 DAYS 11/17/19 Gram Stain - Final, Complete 11/17/19 Sputum Culture - Final, Complete Discharge Medications Scheduled Acetaminophen (Acetaminophen) 500 Mg Tablet, 1,000 MG PO BID Amlodipine Besylate (Amlodipine Besylate) 5 Mg Tablet, 5 MG PO BID Benzonatate (Benzonatate) 100 Mg Capsule, 200 MG PO Q8H Cefdinir (Cefdinir) 300 Mg Capsule, 300 MG PO BID Cholecalciferol (Vitamin D3) (Vitamin D3) 1,000 Unit Tablet, 1,000 UNIT PO QHS, (Reported) Docusate Sodium (Docusate Sodium) 100 Mg Capsule, 100 MG PO BID, (Reported) Finasteride (Finasteride) 5 Mg Tab, 5 MG PO QHS, (Reported) Labetalol HCl (Labetalol HCl) 100 Mg Tablet, 50 MG PO Q8H, (Reported) Lovastatin (Lovastatin) 40 Mg Tab, 20 MG PO QHS, (Reported) Multivitamins (Thera M Plus Tablet) 1 Each Tablet, 1 TAB PO QHS, (Reported) Scheduled PRN Albuterol Sulfate (Proair Hfa) 8.5 Gm Hfa.aer.ad, 2 PUFF INH QID PRN for SHORTNESS OF BREATH, (Reported) Oxycodone/Acetaminophen (Oxycodone-Acetaminophen 5-325) 1 Each Tablet, 1 TAB PO Q6HP PRN for MILD/MODERATE PAIN (PS 1-7) Allergies Coded Allergies: No Known Allergies (Unverified , 11/02/19) LIANA YUN PA-C Nov 23, 2019 10:43
[2019-11-23 13:30] VITALS: BP 122/84
== END 2019-11-23 14:30 | disposition home or self-care (01) | DRG 871 ==
LOC: M ED 19:44 → M ED INP 22:57 → ENRESERV 23:43 → M MS5PR 11-18 00:25
PROVIDERS: ADMIT Internal Medicine; ATTEND Internal Medicine
DX: A41.9 Sepsis, unspecified organism (principal); J18.9 Pneumonia, unspecified organism; C64.1 Malignant neoplasm of right kidney, except renal pelvis; N17.9 Acute kidney failure, unspecified; R65.20 Severe sepsis without septic shock; I16.0 Hypertensive urgency; I10 Essential (primary) hypertension; E78.5 Hyperlipidemia, unspecified; N40.0 Benign prostatic hyperplasia without lower urinary tract symptoms; Z90.5 Acquired absence of kidney; Z96.652 Presence of left artificial knee joint; Z79.899 Other long term (current) drug therapy; Y95 Nosocomial condition

== ENCOUNTER → 2019-12-14 | Outpatient (CLI) | payer MEDICARE ==
[~2019-12-14] MED LIST changes: +ACET-683 PO; +AMLO5TAB6 PO; +BENZ-18 PO; +CEFD300CAP PO; +ISOVUE-370 76% 100ML VIAL (Q9967) As Ordered ONE; +METO200T28 PO; +OXYC1TAB23 PO; +VITA100066 PO; +VITMTA PO
--- NOTE | 2019-12-15 09:22 | REP ---
CT CHEST WITH IV CONTRAST: TECHNIQUE: Axial contrast enhanced images from the thoracic inlet to the upper abdomen using 100 mL Isovue 370 intravenous contrast material with multiplanar reformations. The lungs show fibrotic changes inferiorly, more so on the right than on the left. No suspicious nodular opacity is seen bilaterally. There is no evidence of mediastinal, hilar or chest wall lymphadenopathy. There is no pleural or pericardial effusion. Heart is normal in size. Thoracic aorta is normal in caliber with no aneurysm. There are mild atherosclerotic calcifications of the thoracic aorta. The visualized upper abdominal structures are unremarkable. IMPRESSION: There are suspicious pulmonary nodules or adenopathy. Electronically Signed by Freddie Brewer MD 12/15/2019 10:52 P
== END ==
LOC: M RAD 14:54
PROVIDERS: ATTEND Internal Medicine Medical Oncology
DX: R91.8 Other nonspecific abnormal finding of lung field (principal); C64.9 Malignant neoplasm of unspecified kidney, except renal pelvis
CPT/HCPCS: 71260; Q9967

== ENCOUNTER → 2019-12-21 | Outpatient (CLI) | payer MEDICARE ==
[~2019-12-21] MED LIST changes: -ISOVUE-370 76% 100ML VIAL (Q9967) As Ordered ONE; +PROHANCE 279.3MG/ML 5ML VIAL (A9576) As Ordered ONE
--- NOTE | 2019-12-21 12:04 | REP ---
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 Initial baseline restaging. Right nephrectomy October 2019. Technique: Axial and coronal T1 and T2-weighted sequences include spin-echo, fast spin echo, in and [id number], gradient echo, and post contrast dynamically acquired T1-weighted fat sat imaging. Gadolinium enhancement dose is 8.0 mL, intravenous ProHance, half-dose protocol. MRI findings: In the interval since the prior study of 09/24/2019, the right kidney has been removed. There is no evidence of nodularity or mass in the nephrectomy bed. The right adrenal gland is normal. There are cysts affecting the left kidney which were noted previously. The largest of these measures 3.3 cm unchanged. No left renal mass or hydronephrosis is seen. No retroperitoneal adenopathy or mass is observed. No pancreatic lesion is seen. No focal liver lesion is observed. Postcontrast imaging shows no additional abnormality. Impression: Status post interval right nephrectomy. No evidence of residual or recurrent intra-abdominal mass or adenopathy. Electronically Signed by Volodymyr Junior MD 12/21/2019 06:52 P
== END ==
LOC: M RAD 09:26
PROVIDERS: ATTEND Internal Medicine Medical Oncology
DX: C64.9 Malignant neoplasm of unspecified kidney, except renal pelvis (principal); Z90.5 Acquired absence of kidney
CPT/HCPCS: 74183; A9576

== ENCOUNTER → 2019-12-21 | Outpatient (CLI) | payer MEDICARE ==
[~2019-12-21] MED LIST changes: -PROHANCE 279.3MG/ML 5ML VIAL (A9576) As Ordered ONE
--- NOTE | 2019-12-21 13:40 | REP ---
Chest x-ray: Two views. History: Followup pneumonia. Comparison chest x-ray: October 13, 2019. Comparison chest CT study December 14, 2019. Findings: Right hemidiaphragm remains slightly elevated unchanged. Pleural angles are sharp. No infiltrate is seen. Heart is not enlarged. The aorta is somewhat tortuous unchanged. Pulmonary vasculature is not increased. No acute bony abnormality is seen. Impression: No acute disease. Electronically Signed by Volodymyr Junior MD 12/21/2019 06:55 P
== END ==
LOC: M RAD 11:19
PROVIDERS: ATTEND Nurse Practitioner Adult Health
DX: J18.9 Pneumonia, unspecified organism (principal)

== ENCOUNTER → 2020-03-20 | Outpatient (CLI) | payer MEDICARE ==
[~2020-03-20] MED LIST changes: +ISOVUE-370 76% 100ML VIAL As Ordered ONE
--- NOTE | 2020-03-20 11:17 | REP ---
CT CHEST WITH IV CONTRAST: TECHNIQUE: Axial contrast enhanced images from the thoracic inlet to the upper abdomen using 100 mL Isovue-370 intravenous contrast material with multiplanar reformations. COMPARISON: CT 12/14/2019 There is mild elevation of the right hemidiaphragm. There are stable fibroatelectatic changes in each lung base, right more so than left. No pulmonary nodule is seen. There is no evidence of mediastinal, hilar, or chest wall lymphadenopathy. There is atherosclerotic calcification of the thoracic aorta with no evidence of aneurysm or dissection. There is mild ectasis of the ascending thoracic aorta measuring 4 cm in diameter. The heart is not enlarged. There is no pleural or pericardial effusion. The visualized upper abdominal structures appear unchanged. The patient has had a prior right nephrectomy. There is a cyst in the upper pole of the left kidney measuring about 2 cm in diameter. There are degenerative changes of the spine with no definite bone lesion. IMPRESSION: No evidence of pulmonary nodule or suspicious adenopathy. No change since The prior study of 12/14/2019. Electronically Signed by Freddie Brewer MD 03/20/2020 11:58 A
== END ==
LOC: M RAD 09:15
PROVIDERS: ATTEND Internal Medicine Medical Oncology
DX: C64.9 Malignant neoplasm of unspecified kidney, except renal pelvis (principal); I70.0 Atherosclerosis of aorta; Z90.5 Acquired absence of kidney; N28.1 Cyst of kidney, acquired; I77.810 Thoracic aortic ectasia
CPT/HCPCS: 71260; Q9967

== ENCOUNTER → 2020-03-22 | Outpatient (CLI) | payer MEDICARE ==
[~2020-03-22] MED LIST changes: -ISOVUE-370 76% 100ML VIAL As Ordered ONE; +PROHANCE 279.3MG/ML 15ML VIAL As Ordered ONE
--- NOTE | 2020-03-22 16:27 | REP ---
MRI ABDOMEN WITH AND WITHOUT CONTRAST: COMPARISON: 12/21/2019 HISTORY: Renal cell carcinoma, right nephrectomy. TECHNIQUE: Multiple sequences obtained in the axial and coronal planes prior to and following the intravenous administration of 8 mL ProHance. No mass is seen in the right renal fossa. Left kidney demonstrates a lobulated cyst posteriorly, unchanged. There is no left hydronephrosis or new mass. There is no periaortic adenopathy. Visualized liver is unremarkable. The visualized spleen is unremarkable. The adrenal glands are normal. No pancreatic mass is seen. There is no pancreatic duct or biliary duct dilatation. Gallbladder is grossly unremarkable. IMPRESSION: Status post right nephrectomy. No new mass or adenopathy. Electronically Signed by Freddie Brewer MD 03/22/2020 04:31 P
== END ==
LOC: M RAD 12:20
PROVIDERS: ATTEND Internal Medicine Medical Oncology
DX: C64.9 Malignant neoplasm of unspecified kidney, except renal pelvis (principal); Z90.5 Acquired absence of kidney
CPT/HCPCS: 74183; A9576

== ENCOUNTER → 2020-06-23 | Outpatient (CLI) | payer MEDICARE ==
[~2020-06-23] MED LIST changes: +AMLO1TAB24 PO; -AMLO5TAB6 PO; -PROHANCE 279.3MG/ML 15ML VIAL As Ordered ONE
--- NOTE | 2020-08-11 10:28 | REP ---
MRI OF THE PELVIS WITHOUT CONTRAST HISTORY: Renal cancer. TECHNIQUE: Multiple sequences obtained in the axial, coronal, and sagittal planes. FINDINGS: There is no pelvic adenopathy or mass identified. No free fluid is seen in the pelvis. Urinary bladder is not well distended and not optimally evaluated. There may possibly be mild diffuse bladder wall thickening. There is sigmoid diverticulosis. There may be some mild edema and inflammation involving the superior sigmoid with possibly some mild diverticulitis. There are degenerative changes of the lower lumbar spine and sacroiliac joints. I see no other significant abnormality. IMPRESSION: No evidence of pelvic mass, adenopathy, or free fluid. Possible mild sigmoid diverticulitis. MTDD
--- NOTE | 2020-08-11 10:29 | REP ---
CT OF THE CHEST WITHOUT IV CONTRAST: Delay in reporting results from hospital computer system malfunction from malware/ ransomware. COMPARISON: Chest CT studies dated 03/20/20 and 12/04/19. Patient has a history of renal carcinoma and right nephrectomy. FINDINGS: There is chronic curvilinear scarring inferiorly in the right middle lobe, posteriorly in the right lower lobe and to a lesser extent, posteriorly in the left lower lobe, unchanged from the prior studies. There are no lung masses or nodules. There are no infiltrates or pleural effusions. No mediastinal or axillary lymph node enlargement is identified. In the absence of IV contrast, the study is insensitive for hilar adenopathy. Chronic elevation of the right hemidiaphragm is incidentally noted, likely eventration. The unenhanced thoracic aorta is unremarkable except for occasional calcified atheroma. Cardiac size is normal. There is calcified atheroma in the coronary arteries. This appears unchanged. There is no pericardial effusion. In the upper abdomen, there is no adrenal mass. There is a renal cortical cyst posteriorly in the upper pole of the left kidney, unchanged. The visualized hepatic, splenic and pancreatic parenchyma is unremarkable. No lytic, blastic or destructive skeletal changes ore identified. There is multilevel degenerative disc disease throughout the thoracic spine. IMPRESSION: There is no significant interval change MTDD
--- NOTE | 2020-08-11 10:30 | REP ---
MRI ABDOMEN WITHOUT CONTRAST HISTORY: Renal cancer. COMPARISON: MRI 03/22/2020. TECHNIQUE: Multiple sequences obtained in the axial, coronal, and sagittal planes without the use of intravenous contrast. This somewhat limits the exam. FINDINGS: The liver is normal in size with no abnormal signal intensity. The spleen is normal in size with no evidence of gross intrinsic abnormality. Adrenal glands are normal. Pancreas demonstrates no gross abnormality or evidence of pancreatic duct dilatation. Gallbladder is grossly unremarkable as is the common bile duct. The patient has had a prior right nephrectomy and metallic clips are seen in the anterior abdominal wall inferiorly. A lobulated cyst of the posterior left kidney is unchanged with a maximum diameter of about 3 cm. There is no hydronephrosis of the left kidney. I see no significant adenopathy. I see no free fluid. IMPRESSION: Essentially stable examination compared to 03/22/2020. The patient is status post right nephrectomy. There is a stable left renal cyst. MTDD
== END ==
LOC: M RAD 14:30
PROVIDERS: ATTEND Internal Medicine Medical Oncology
DX: Z85.528 Personal history of other malignant neoplasm of kidney (principal)

== ENCOUNTER → 2020-10-18 | Outpatient (CLI) | payer MEDICARE ==
[~2020-10-18] MED LIST changes: +LABE100T4 PO; -LABE10TAB PO
--- NOTE | 2020-10-18 14:22 | REP ---
INDICATION: RENAL CELL CARCINOMA CT 1ST MR 2ND. COMPARISON: Comparison CT study August 28 [id number] and November 17, 2019. Comparison MRI exam June 23, 2020.. TECHNIQUE: Axial and coronal T1 and T2 weighted scans are obtained. Sequences include spin echo, fast spin echo, gradient echo, in and out of phase, and T1 fat sat sequences. FINDINGS: Patient is status post right nephrectomy. There is a stable left renal cyst again noted measuring 3.7 cm in greatest anteroposterior dimension. There are tiny parapelvic cysts on the left. No left renal mass lesion is seen. There is no evidence of mass effect or adenopathy in the right hysterectomy bed. Right adrenal gland persists and is normal. Left adrenal gland is unremarkable. No pancreatic abnormality is seen. No liver mass lesion is seen. There is no evidence of ascites. No bony lesion is seen. IMPRESSION: Stable left renal cyst. Status post right nephrectomy. No acute disease. <Electronically signed by Juan Junior > 10/18/20 [id number]
--- NOTE | 2020-10-18 15:32 | REP ---
INDICATION: RENAL CELL CARCINOMA CT 1ST MRI 2ND. COMPARISON: Comparison CT study June 23, 2020.. TECHNIQUE: Helical scanning is acquired and 3 mm axial images are generated. Coronal and sagittal MPR and coronal MIP images are generated and reviewed. 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 No pulmonary mass or new pulmonary nodule is appreciated. There is stable fibrotic change in the right lower lobe and to a lesser extent left lower lobe. No new infiltrate is seen. No pleural or pericardial effusion is seen. No hilar or mediastinal mass lesion is observed. Vascular calcification including left coronary artery vascular calcification is observed. Visualized upper abdominal structures are unchanged. No bony destructive lesion is seen. IMPRESSION: No active cardiopulmonary disease seen. <Electronically signed by Juan Junior > 10/18/20 [id number]
== END ==
LOC: M RAD 09:57
PROVIDERS: ATTEND Internal Medicine Medical Oncology
DX: C64.9 Malignant neoplasm of unspecified kidney, except renal pelvis (principal); J84.10 Pulmonary fibrosis, unspecified; N28.1 Cyst of kidney, acquired; Z90.5 Acquired absence of kidney

== ENCOUNTER → 2021-04-19 | Outpatient (CLI) | payer MEDICARE ==
--- NOTE | 2021-04-19 10:36 | REP ---
INDICATION: RENAL CELL CA COMPARISON: 10/18/2020 TECHNIQUE: Axial noncontrast images from the thoracic inlet to the upper abdomen with coronal and sagittal reformations. This CT examination was performed using the following dose reduction techniques: Automated exposure control, adjustment of mA and/or kv according to the patient's size, and use of iterative reconstruction technique. FINDINGS: Bibasilar fibroatelectatic changes appear somewhat increased as compared to prior examination. No obvious nodule or mass lesion is appreciated. No evidence for pleural effusion or pneumothorax. Tracheobronchial tree is patent. No significant adenopathy identified. Stable atherosclerotic changes to the thoracic aorta and coronary arteries noted. No aortic aneurysm identified. No pericardial effusion. Visualized thyroid gland is grossly normal. Surrounding musculoskeletal structures demonstrate generalized age-related changes without obvious focal abnormality. IMPRESSION: Increased bibasilar fibroatelectatic changes (right greater than left) are nonspecific. No obvious nodule or mass lesion. No pleural effusion. <Electronically signed by Foreign Dietrich > 04/19/21 [id number]
--- NOTE | 2021-04-19 12:14 | REP ---
INDICATION: RENAL CELL CA. COMPARISON: 10/18/2020. TECHNIQUE: Multiple sequences obtained in the axial coronal planes without the use of intravenous contrast. FINDINGS: The patient has had a prior right nephrectomy. There is a stable left renal cyst posteriorly measuring approximately 3.4 cm in maximum diameter. There are also smaller parapelvic cysts present. There is no hydroureteronephrosis of the left kidney. No suspicious mass is seen in the right renal fossa. Adrenal glands are normal. No focal signal abnormality is seen of the liver. The spleen is unremarkable. No focal signal abnormality is seen in the pancreas. There is no evidence of biliary duct or pancreatic duct dilatation. The gallbladder is grossly unremarkable. There is no adenopathy or free fluid in the abdomen. IMPRESSION: Stable left renal cyst. No new findings. <Electronically signed by Freddie Brewer > 04/19/21 [id number]
== END ==
LOC: M RAD 09:56
PROVIDERS: ATTEND Internal Medicine Medical Oncology
DX: C64.9 Malignant neoplasm of unspecified kidney, except renal pelvis (principal); N28.1 Cyst of kidney, acquired

== ENCOUNTER → 2021-09-14 | Outpatient (CLI) | payer MEDICARE ==
--- NOTE | 2021-09-14 14:46 | REP ---
INDICATION: N. COMPARISON: None. TECHNIQUE/RADIOTRACER AND DOSE: After the intravenous administration of 21.9 mCi of FDG 18 a total body bone scan was performed. FINDINGS: There is focal increased renew collection lesions seen in the right shoulder AC joint region. There is in addition focus of increased activity seen in the right shoulder in the region of the medial aspect of the humeral head. Focal increased radionuclide accumulation is seen in the inferior cervical spine region. There is a photopenic defect in the left knee from previous arthroplasty placement. There is a mild degenerative type uptake pattern in the lumbar spine, ankles, feet, and left shoulder. IMPRESSION: 1. Focal increased activity in the right shoulder region as described above. Etiology uncertain. At least some of the focal activity is consistent with degenerative change, however, right shoulder MRI should be considered for further evaluation. 2. Degenerative type uptake pattern seen in the cervical and lumbar spines. 3. Left knee photopenic defect as described above. 4. Other findings as described above. <Electronically signed by Greg Chapa > 09/14/21 [id number]
== END ==
LOC: M RAD 10:08
PROVIDERS: ATTEND Internal Medicine Medical Oncology
DX: M54.2 Cervicalgia (principal); C64.9 Malignant neoplasm of unspecified kidney, except renal pelvis
CPT/HCPCS: 78306; A9503

== ENCOUNTER → 2021-10-05 | Outpatient (CLI) | payer MEDICARE ==
--- NOTE | 2021-10-05 14:31 | REP ---
INDICATION: SHOULDER PAIN COMPARISON: None. TECHNIQUE: Internal rotation, external rotation, and Y view. FINDINGS: Mild cortical irregularity and spurring at the acromioclavicular joint. Subtle sclerotic fraying along the ossified glenoid rim noted. The subacromial space is normal. The humeral head is normal. No periarticular calcifications or loose bodies identified. No evidence for acute fracture or dislocation. IMPRESSION: Mild arthritic degenerative changes. <Electronically signed by Foreign Dietrich > 10/05/21 [id number]
== END ==
LOC: M RAD 13:29
PROVIDERS: ATTEND Internal Medicine Medical Oncology
DX: M25.511 Pain in right shoulder (principal); M19.011 Primary osteoarthritis, right shoulder

== ENCOUNTER → 2021-10-29 | Outpatient (CLI) | payer MEDICARE | LOC: M RAD 10:09 | PROVIDERS: ATTEND Internal Medicine Medical Oncology | DX: C64.9 Malignant neoplasm of unspecified kidney, except renal pelvis (principal) ==

== ENCOUNTER → 2021-11-02 | Outpatient (CLI) | payer MEDICARE | LOC: M RAD 13:49 | PROVIDERS: ATTEND Internal Medicine Medical Oncology | DX: M25.511 Pain in right shoulder (principal); R93.7 Abnormal findings on diagnostic imaging of other parts of musculoskeletal system; C64.9 Malignant neoplasm of unspecified kidney, except renal pelvis ==

== ENCOUNTER → 2022-02-13 | Outpatient (CLI) | payer MEDICARE | LOC: M SOG 10:19 | PROVIDERS: ATTEND Orthopaedic Surgery | DX: M54.2 Cervicalgia (principal); M19.011 Primary osteoarthritis, right shoulder; M19.012 Primary osteoarthritis, left shoulder ==

== ENCOUNTER → 2022-03-06 | Outpatient (CLI) | payer MEDICARE | LOC: M PLAIMG 06:41 | PROVIDERS: ATTEND Orthopaedic Surgery | DX: M75.42 Impingement syndrome of left shoulder (principal); M75.82 Other shoulder lesions, left shoulder ==

== ENCOUNTER → 2022-11-04 | Outpatient (CLI) | payer MEDICARE ==
[~2022-11-04] MED LIST changes: -LABE100T4 PO; +LABE100T6 PO
== END ==
LOC: M RAD 10:03
PROVIDERS: ATTEND Nurse Practitioner
DX: C64.9 Malignant neoplasm of unspecified kidney, except renal pelvis (principal)

== ENCOUNTER → 2022-12-01 | Outpatient (CLI) | payer MEDICARE ==
[~2022-12-01] MED LIST changes: +ACET32TAB PO; +ALBU90AE IH; +AMOX500C PO; +FLUO10CA18 PO; +METO1TAB7 PO
== END ==
LOC: M LABSMTC 12:01
PROVIDERS: ATTEND Anesthesiology
DX: Z01.812 Encounter for preprocedural laboratory examination (principal); Z11.52 Encounter for screening for COVID-19

== ENCOUNTER 2022-12-06 10:46 | Day surgery (SDC) | payer MEDICARE ==
[~2022-12-06] VITALS: Ht 180.3 cm; Wt 95.2 kg
[~2022-12-06 10:46] MED LIST changes: +NS 1,000 ML IV ONE
[2022-12-06] MEDS ORDERED: propofoL 200 MG/20 ML VIAL As Ordered ONE (12:26)
[2022-12-06] MEDS ORDERED: LIDOCAINE 2% 100MG/5ML SDV (FOR ANES.) As Ordered ONE (12:26)
[2022-12-06 13:10] VITALS: BP 113/58
== END 2022-12-06 13:19 | disposition home or self-care (01) ==
LOC: M OPP 10:46
PROVIDERS: ATTEND Surgery
DX: Z12.11 Encounter for screening for malignant neoplasm of colon (principal); Z86.010 Personal history of colon polyps; K57.30 Diverticulosis of large intestine without perforation or abscess without bleeding; Z79.02 Long term (current) use of antithrombotics/antiplatelets; Z79.2 Long term (current) use of antibiotics; Z79.51 Long term (current) use of inhaled steroids; Z79.899 Other long term (current) drug therapy; I10 Essential (primary) hypertension; E78.00 Pure hypercholesterolemia, unspecified; M19.049 Primary osteoarthritis, unspecified hand; Z85.528 Personal history of other malignant neoplasm of kidney

== ENCOUNTER → 2023-01-17 | Outpatient (CLI) | payer MEDICARE ==
[~2023-01-17] MED LIST changes: -NS 1,000 ML IV ONE
== END ==
LOC: M LABSMTC 09:00
PROVIDERS: ATTEND Anesthesiology
DX: Z01.812 Encounter for preprocedural laboratory examination (principal)

== ENCOUNTER 2023-01-21 07:49 | Day surgery (SDC) | payer MEDICARE ==
[~2023-01-21] VITALS: Ht 180.3 cm; Wt 96.6 kg
[~2023-01-21 07:49] MED LIST changes: +CEFUROXIME 1MG/0.1ML INTRACAMERAL INJ As Ordered ONE; +CYCLOPENTOLATE 1% OPHTH SOLN 2ML BTL OD SCH; +LIDOCAINE 1% SDV 5ML VIAL As Ordered ONE; +OFLOXACIN 0.3 % (OCUFLOX) OPTH SOL 5ML OD SCH; +PHENYLEPHRINE 2.5% OPHTH SOL 2ML OD SCH; +PROPARACAINE 0.5% OPHTH SOL 15ML OD ONE; +TROPICAMIDE 1% OPHTH SOLN 15ML OD SCH
[2023-01-21] MEDS ORDERED: MIDAZOLAM INJ 2MG/2ML VIAL As Ordered ONE (09:17)
[2023-01-21] MEDS ORDERED: fentaNYL 100 MCG/2 ML INJECTION As Ordered ONE (09:18)
[2023-01-21] MEDS ORDERED: BSS IRR 500ML/OMIDRIA 4ML IRR BAG (OR ONLY) As Ordered ONE (09:20)
[2023-01-21] MEDS ORDERED: TOBRADEX OPHTH OINT 3.5 GM As Ordered ONE (10:07)
[2023-01-21 10:30] VITALS: BP 124/83
== END 2023-01-21 11:00 | disposition home or self-care (01) ==
LOC: M SDC 07:49
PROVIDERS: ATTEND Ophthalmology
DX: H25.11 Age-related nuclear cataract, right eye (principal); I10 Essential (primary) hypertension; E78.00 Pure hypercholesterolemia, unspecified; K21.9 Gastro-esophageal reflux disease without esophagitis; M19.90 Unspecified osteoarthritis, unspecified site; M54.9 Dorsalgia, unspecified; F41.9 Anxiety disorder, unspecified; R51.9 Headache, unspecified; N40.0 Benign prostatic hyperplasia without lower urinary tract symptoms; Z85.528 Personal history of other malignant neoplasm of kidney; Z90.5 Acquired absence of kidney; Z79.899 Other long term (current) drug therapy
CPT/HCPCS: 66984; 92015; J0697; J1097; J2250; J3010; V2632

== ENCOUNTER 2023-02-18 07:54 | Day surgery (SDC) | payer MEDICARE ==
[~2023-02-18] VITALS: Ht 177.8 cm; Wt 97.4 kg
[2023-02-18] MEDS ORDERED: BSS IRR 500ML/OMIDRIA 4ML IRR BAG (OR ONLY) As Ordered ONE (09:22)
[2023-02-18] MEDS ORDERED: fentaNYL 100 MCG/2 ML INJECTION As Ordered ONE (09:29)
[2023-02-18] MEDS ORDERED: MIDAZOLAM INJ 2MG/2ML VIAL As Ordered ONE (09:29)
[2023-02-18 10:30] VITALS: BP 134/93
== END 2023-02-18 10:40 | disposition home or self-care (01) ==
LOC: M SDC 07:54
PROVIDERS: ATTEND Ophthalmology
DX: H25.12 Age-related nuclear cataract, left eye (principal); I10 Essential (primary) hypertension; E78.5 Hyperlipidemia, unspecified; F41.9 Anxiety disorder, unspecified; N40.0 Benign prostatic hyperplasia without lower urinary tract symptoms; Z79.899 Other long term (current) drug therapy
CPT/HCPCS: 66984; J0697; J1097; J2250; J3010; V2632

== ENCOUNTER → 2023-10-23 | Outpatient (CLI) | payer MEDICARE ==
[~2023-10-23] MED LIST changes: -CEFUROXIME 1MG/0.1ML INTRACAMERAL INJ As Ordered ONE; -CYCLOPENTOLATE 1% OPHTH SOLN 2ML BTL OD SCH; +GASTROGRAFIN SOLUTION 30ML As Ordered ONE; -LIDOCAINE 1% SDV 5ML VIAL As Ordered ONE; -OFLOXACIN 0.3 % (OCUFLOX) OPTH SOL 5ML OD SCH; -PHENYLEPHRINE 2.5% OPHTH SOL 2ML OD SCH; -PROPARACAINE 0.5% OPHTH SOL 15ML OD ONE; -TROPICAMIDE 1% OPHTH SOLN 15ML OD SCH
== END ==
LOC: M RAD 11:07
PROVIDERS: ATTEND Nurse Practitioner
DX: C64.9 Malignant neoplasm of unspecified kidney, except renal pelvis (principal); Z90.5 Acquired absence of kidney; N28.1 Cyst of kidney, acquired
CPT/HCPCS: 71250; 74176; Q9963

== ENCOUNTER → 2024-07-26 | Outpatient (CLI) | payer MEDICARE ==
[~2024-07-26] MED LIST changes: -ALBU90AE IH; +ALBU90AE2 IH; +FLUO-290 PO; -FLUO10CA18 PO; -GASTROGRAFIN SOLUTION 30ML As Ordered ONE; +HYDR-161 PO; -HYDR10TAB PO; +METO200T15 PO; -METO200T28 PO
[2024-07-26 13:53] LABS: ALBUMIN 3.8 G/DL (3.2-5.2); BILIRUBIN,TOTAL 0.5 MG/DL (0.3-1.2); CALCIUM LEVEL 9.2 MG/DL (8.3-10.6); CREATININE FOR GFR 1.86 MG/DL (0.70-1.30); GLOMERULAR FILTRATION RATE 37.5 (>42); POTASSIUM SERUM 4.3 MMOL/L (3.5-5.1); TOTAL PROTEIN 6.7 G/DL (5.7-8.2)
== END ==
LOC: M WUC 09:38
PROVIDERS: ATTEND Registered Nurse
DX: U07.1 COVID-19 (principal)

== ENCOUNTER → 2024-10-28 | Outpatient (CLI) | payer MEDICARE | LOC: M RAD 10:45 | PROVIDERS: ATTEND Internal Medicine Medical Oncology | DX: C64.1 Malignant neoplasm of right kidney, except renal pelvis (principal); Z90.5 Acquired absence of kidney; N28.1 Cyst of kidney, acquired; K57.30 Diverticulosis of large intestine without perforation or abscess without bleeding; I70.0 Atherosclerosis of aorta; I25.10 Atherosclerotic heart disease of native coronary artery without angina pectoris; R91.8 Other nonspecific abnormal finding of lung field ==

== ENCOUNTER 2024-12-12 12:19 | Emergency (ER) | payer OTHER, MEDICARE ==
[2024-12-12 13:20] LABS: BASO # 0.1 10^3/uL (0.0-0.2); BASO % 0.5 % (0.0-1.0); EOS # 0.2 10^3/uL (0.0-0.5); EOS % 2.2 % (0.0-3.0); HEMATOCRIT 46.8 % (42.0-52.0); HEMOGLOBIN 15.9 g/dl (13.5-17.5); LYMPH # 1.5 10^3/uL (1.5-5.0); LYMPH % 16.2 % (24.0-44.0); MEAN CORPUSCULAR HEMOGLOBIN 31.4 pg (27.0-33.0); MEAN CORPUSCULAR VOLUME 92.5 fl (80.0-96.0); MONO % 10.8 % (2.0-8.0); NEUTROPHILS # 6.6 10^3/uL (1.5-8.5); NEUTROPHILS % 69.9 % (36.0-66.0); PLATELET COUNT, AUTOMATED 268 10^3/uL (150-450); RED BLOOD COUNT 5.06 10^6/uL (4.30-6.10); WHITE BLOOD COUNT 9.5 10^3/uL (4.0-10.0)
[2024-12-12] MEDS ORDERED: ISOVUE-370 76% 100ML VIAL As Ordered ONE (13:21)
[2024-12-12 13:42] LABS: AMYLASE 111 U/L (30-118)
[2024-12-12 13:46] LABS: ETHYL ALCOHOL (ETHANOL) 0.006 % (0.000-0.010)
[2024-12-12 13:49] LABS: ALBUMIN 3.8 G/DL (3.2-5.2); ALKALINE PHOSPHATASE 52 U/L (40-129); ALT/SGPT 60 U/L (7.0-40); AST/SGOT 45 U/L (<34); BILIRUBIN,DIRECT 0.1 MG/DL (<0.4); BILIRUBIN,TOTAL 0.7 MG/DL (0.3-1.2); CK-MB VALUE MASS < 1.0 NG/ML (<3.6); CPK CREATINE PHOSPHOKINASE 152 U/L (46-171); LIPASE 42 U/L (12-53); MB/CK RELATIVE INDEX 0.65 (< OR =4); TOTAL PROTEIN 7.3 G/DL (5.7-8.2)
[2024-12-12] MEDS: NS (Normal Saline) 0.9% 1,000 ML IV ONE (14:14)
[2024-12-12 15:07] LABS: APPEARANCE, URINE CLEAR (CLEAR); BACTERIA, URINE AUTO NEGATIVE (NEGATIVE); BILIRUBIN, URINE AUTO NEGATIVE (NEGATIVE); BLOOD, URINE BLOOD NEGATIVE (NEGATIVE); COLOR, URINE YELLOW (YELLOW); GLUCOSE, URINE (UA) AUTO NEGATIVE (NEGATIVE); KETONE, URINE AUTO NEGATIVE (NEGATIVE); LEUKOCYTE ESTERASE, URINE AUTO NEGATIVE (NEGATIVE); NITRITE, URINE AUTO NEGATIVE (NEGATIVE); PROTEIN, URINE AUTO NEGATIVE (NEGATIVE); RBC, URINE AUTO 0 /HPF (0-3); SPECIFIC GRAVITY URINE AUTO 1.009 (1.002-1.035); SQUAMOUS EPITHELIAL CELL UR AU 0 /HPF (0-6); UROBILINOGEN, URINE AUTO 0.2 mg/dL (0.0-2.0); WBC, URINE AUTO 0 /HPF (0-3)
[2024-12-12 15:31] LABS: AMPHETAMINES LEVEL URINE NEGATIVE (NEGATIVE); BARBITURATES URINE NEGATIVE (NEGATIVE); BENZODIAZEPINES URINE NEGATIVE (NEGATIVE); CANNABINOIDS URINE NEGATIVE (NEGATIVE); COCAINE METABOLITE URINE NEGATIVE (NEGATIVE); METHADONE URINE NEGATIVE (NEGATIVE); OPIATES URINE NEGATIVE (NEGATIVE); PHENCYCLIDINE URINE NEGATIVE (NEGATIVE)
[2024-12-12 15:43] VITALS: BP 149/73; TEMP 98; O2SAT 95
== END 2024-12-12 15:59 | disposition home or self-care (01) ==
LOC: M ED 12:19 → EDBD 12:19 → M ED 15:59
DX: S06.0X0A Concussion without loss of consciousness, initial encounter (principal); V89.2XXA Person injured in unspecified motor-vehicle accident, traffic, initial encounter; Y92.9 Unspecified place or not applicable; Y93.9 Activity, unspecified; Y99.9 Unspecified external cause status; I10 Essential (primary) hypertension; M19.012 Primary osteoarthritis, left shoulder; M50.30 Other cervical disc degeneration, unspecified cervical region; Z79.899 Other long term (current) drug therapy